=== PATIENT | female | born 1955 | race Native Hawaiian/Other Pacific Islander ===

== ENCOUNTER → 2017-07-14 | Outpatient (CLI) | payer OTHER ==
--- NOTE | 2017-07-15 08:38 | MM ---
Reason for exam: additional evaluation requested from prior study. Last mammogram was performed 3 months ago. History: Patient is postmenopausal, has history of breast cancer at age 48, and is nulliparous. Malignant lumpectomy of the right breast, 2003. Took estrogen for 2 years beginning at age 46. Took progesterone for 2 years beginning at age 46. Physical Findings: Nurse Summary: 1.5cm nodule in the right breast at 1 o'clock (nurse dw). MG Diagnostic Mammo RT w CAD CC and MLO view(s) were taken of the right breast. Prior study comparison: April 01, 2017, mammogram. There are scattered fibroglandular densities. Finding: There is an intermediate concern, suspicious 20 mm high density, spiculated oval mass located 6 cm from the nipple in the 12 o'clock upper quadrant, middle position of the right breast. Surgical clips in the right upper outer quadrant. New finding since April 01, 2017. These results were verbally communicated with the patient and result sheet given to the patient on 07/14/17. ASSESSMENT: Suspicious, BI-RAD 4 RECOMMENDATION: Surgical consultation and ultrasound core biopsy of the right breast. Called Dr. Martini with mammographic findings and has scheduled an appointment for the patient for 07/19/17 at 9:[address] Azul. PRELIMINARY REPORT CALLED AND FAXED TO DR. AZUL ON 07/15/17.
--- NOTE | 2017-07-15 08:39 | USB ---
Reason for exam: additional evaluation requested from prior study. History: Patient is postmenopausal, has history of breast cancer at age 48, and is nulliparous. Malignant lumpectomy of the right breast, 2003. Took estrogen for 2 years beginning at age 46. Took progesterone for 2 years beginning at age 46. US Breast RT Right breast ultrasound includes all four quadrants, the retroareolar region and axilla. Finding demonstrates a 3.1 x 1.5 x 2.3cm irregular, spiculated, solid, hypoechoic, vascular lesion at 6 o'clock. These results were verbally communicated with the patient and result sheet given to the patient on 07/14/17. ASSESSMENT: Suspicious, BI-RAD 4 RECOMMENDATION: Surgical consultation and ultrasound core biopsy of the right breast. Called Dr. Martini with mammographic findings and has scheduled an appointment for the patient for 07/19/17 at 9:[address] Azul. PRELIMINARY REPORT CALLED AND FAXED TO DR. AZUL ON 07/15/17.
== END | disposition home or self-care (01) ==
LOC: RADMAMWWP 13:46
PROVIDERS: ATTEND Internal Medicine
DX: N63.10 Unspecified lump in the right breast, unspecified quadrant (principal)
CPT/HCPCS: 77065

== ENCOUNTER → 2017-07-26 | Day surgery (SDC) | payer OTHER ==
--- NOTE | 2017-07-26 14:20 | USB ---
EXAMINATION TYPE: US biopsy breast VAD RT, Postbiopsy diagnostic mammo RT wo CAD DATE OF EXAM: 07/26/2017 CLINICAL HISTORY: 62-year-old female R92.8 ABN MAMMO. Patient with prior history of right breast canc er status post lumpectomy. TECHNIQUE: Ultrasound guided core biopsy of the right breast. COMPARISON: 07/14/2017, 04/01/2017, and 03/12/2016 FINDINGS: The procedure of ultrasound guided core biopsy was explained to the patient. Benefits, alt ernatives, and risks were discussed. An informed consent was then obtained. The patient was placed in supine positioning for imaging and for the procedure. The overlying skin w as prepped and draped in usual sterile fashion. Lidocaine buffered with bicarbonate was used as anes thetic into the skin and subcutaneous tissue up to area of concern in the 6:00 right breast. Under ultrasound guidance, a 13-gauge vacuum-assisted mammotome Elite biopsy gun device was used to o btain 8 core samples. Following this, a coil clip was left in lesion. A ribbon clip initially faile d to deploy. The patient tolerated the procedure well without any immediate complication. The patient was kept in the radiology department for short stay after the procedure and then discharged home in stable condi tion. Postbiopsy mammogram shows coil clip at the mammographic 6:00 mass. IMPRESSION: Successful, uncomplicated ultrasound guided core biopsy of suspicious 6:00 mass in the right breast. Patient with history of prior right breast cancer. Full pathology results to follow. If benign result s, excision will be recommended.
[2017-07-26 15:40] VITALS: BP 164/83; PULSE 70; RESP 16; TEMP 98.5; BMI 35.7
== END | disposition home or self-care (01) ==
LOC: RADUSWWP 11:11
PROVIDERS: ATTEND Surgery
DX: C50.911 Malignant neoplasm of unspecified site of right female breast (principal); Z85.3 Personal history of malignant neoplasm of breast; Z88.2 Allergy status to sulfonamides
CPT/HCPCS: 88305; 77065; 19083; A4648; J2001

== ENCOUNTER → 2021-10-29 | Outpatient (CLI) | payer MEDICARE, OTHER ==
--- NOTE | 2021-10-29 14:42 | NM ---
EXAMINATION TYPE: NM bone scan whole body DATE OF EXAM: 10/29/2021 COMPARISON: NONE HISTORY: Breast cancer Delayed whole-body scanning was performed following the injection of 23.4 mCi Tc 99m MDP. Images acq uired 3 hours post injection. FINDINGS: Abnormal uptake involving the maxilla likely related to periodontal disease. Abnormal uptake involving the feet, ankles, knees, and shoulders most arthritic changes. Abnormal uptake involving the right ankle could be in the basis of prior trauma. There is faint uptake throughout the thoracic and lumbar spine mild intensity most likely degenerativ e. There is a more focal intense area involving the sternum. This is nonspecific. IMPRESSION: 1. Intense area of abnormal uptake involving the sternum. Recommend correlation with the CT chest. 2. Additional areas of abnormal uptake are felt to be most typical of degenerative or post arthritic changes.
== END ==
LOC: RADNMMAIN 09:59
PROVIDERS: ATTEND Internal Medicine Hematology & Oncology
DX: R93.7 Abnormal findings on diagnostic imaging of other parts of musculoskeletal system (principal)
CPT/HCPCS: 78306; A9503

== ENCOUNTER → 2022-01-17 | Outpatient (CLI) | payer MEDICARE, OTHER ==
--- NOTE | 2022-01-20 10:01 | PE ---
EXAMINATION TYPE: PET CT fusion skull to thigh DATE OF EXAM: 01/17/2022 CLINICAL INDICATION:Female, 66 years old with history of C50.811; TECHNIQUE: Following the intravenous administration of 10.69 mCi of F-18 FDG, whole body images are performed from the skull base to the midthigh. Images are reviewed on the computer in the coronal, axial, and sagittal planes. Reconstructed rotating images are created on independent workstation and reviewed on the computer. A non-contrast CT is performed in conjunction with the PET scan. Glucose level 135 mg/dL COMPARISON: CT 01/30/2014, PET/CT None, FINDINGS: Mediastinal SUV mean is 2.1. Hepatic parenchyma SUV mean is 3.4. SKULL BASE AND NECK: No suspicious FDG activity. Physiologic uptake seen within the larynx. CHEST, MEDIASTINUM, AND HILAR REGION: No suspicious FDG activity. ABDOMEN AND PELVIS: No suspicious FDG activity. OSSEOUS STRUCTURES: No suspicious FDG activity. OTHER CT: Mild coronary artery atherosclerosis. The heart is mildly enlarged for size. Postsurgical c hanges with pneumobilia of the liver. Left hip fixation hardware with hardware in appropriate positio n. IMPRESSION: No suspicious FDG activity.
== END | disposition home or self-care (01) ==
LOC: RADPETMAIN 09:05
PROVIDERS: ATTEND Internal Medicine Hematology & Oncology
DX: C50.811 Malignant neoplasm of overlapping sites of right female breast (principal)
CPT/HCPCS: 78815; A9552

== ENCOUNTER → 2022-02-25 | Outpatient (CLI) | payer MEDICARE, OTHER | END | disposition home or self-care (01) | LOC: LABPAT 13:35 | PROVIDERS: ATTEND Orthopaedic Surgery | DX: Z01.812 Encounter for preprocedural laboratory examination (principal); M17.11 Unilateral primary osteoarthritis, right knee; Z22.322 Carrier or suspected carrier of Methicillin resistant Staphylococcus aureus | CPT/HCPCS: 87070 ==

== ENCOUNTER 2022-03-24 08:24 | Observation (INO) | payer MEDICARE, OTHER ==
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
[~2022-03-24 08:24] MED LIST: ACETAMINOPHEN TAB 500 MG TAB PO PRN; DEXAMETHASONE SOD PHOSPHATE 4 MG/ML 1 ML VIAL IV ONE; HYDROmorphone 0.5 MG/0.5 ML SYRINGE IVP PRN; MELOXICAM 7.5 MG TAB PO PRN; ONDANSETRON 4 MG/2 ML VIAL IVP ONE; TRANEXAMIC ACID IN NACL,ISO-OS 1,000 MG in SALINE 1 100ML.BAG IVPB PRN
[2022-03-24] MEDS: LACTATED RINGERS 1,000 ML IV SCH (08:40)
[2022-03-24] MEDS ORDERED: fentaNYL (PF) 50 MCG/1 ML VIAL IVP ONE (10:04)
[2022-03-24] MEDS ORDERED: MIDAZOLAM 2 MG/2 ML VIAL IVP ONE (10:04)
[2022-03-24] MEDS ORDERED: SODIUM CHLORIDE 0.9% (PF) 10 ML VIAL ONE (10:18)
[2022-03-24] MEDS ORDERED: PROPOFOL 10 MG/ML 20 ML VIAL IV ONE (10:18)
[2022-03-24] MEDS ORDERED: fentaNYL (PF) 50 MCG/ML 2 ML AMP ONE (10:18)
[2022-03-24] MEDS ORDERED: ROPIVACAINE 5 MG/ML 30 ML VIAL ONE (10:18)
[2022-03-24] MEDS ORDERED: MIDAZOLAM 2 MG/2 ML VIAL ONE (10:18)
[2022-03-24] MEDS ORDERED: TRANEXAMIC ACID IN NACL,ISO-OS 1,000 MG/100 ML BAG ONE (10:18)
[2022-03-24] MEDS ORDERED: ceFAZolin 1,000 MG in SODIUM CHLORIDE 0.9% 1,000 ML IRRIGATION ONE (10:55)
--- NOTE | 2022-03-24 11:01 | P.ANPRN ---
Procedure Note - Anesthesia - Nerve Block Performed Right Adductor Canal Infusion Time Out Performed: Yes (1003) Date of Procedure: 03/24/22 Procedure Start Time: 10:04 Procedure Stop Time: 10:11 Location of Patient: PreOp Indication: Acute Post-Operative Pain, Requested by Surgeon Specifically requested for management of pain by : Marcio Noyola Sedation Type: Sedate with meaningful contact maintained Preparation: Sterile Prep, Sterile Dressing Position: Supine Catheter Depth at Skin (cm): 8 Catheter: Indwelling Needle Types: Pajunk Needle Gauge: 18 Ultrasound used to visualize needle placement: Yes Ultrasound used to observe medication spread: Yes Injectate: 0.5% Ropivacaine (see comment for volume) (15cc + 5cc nacl pf) Blood Aspirated: No Pain Paresthesia on Injection Noted: No Resistance on Injection: Normal Image Stored and Saved: Yes Events: Uneventful and Well Tolerated
--- NOTE | 2022-03-24 11:02 | P.ANPRN ---
Procedure Note - Anesthesia - Nerve Block Performed Right iPack Single Time Out Performed: Yes (1003) Date of Procedure: 03/24/22 Procedure Start Time: 10:12 Procedure Stop Time: 10:15 Location of Patient: PreOp Indication: Acute Post-Operative Pain, Requested by Surgeon Specifically requested for management of pain by DrCatalina: Marcio Noyola Sedation Type: Sedate with meaningful contact maintained Preparation: Sterile Prep Position: Supine Catheter: None Needle Types: Pajunk Needle Gauge: 21 Ultrasound used to visualize needle placement: Yes Ultrasound used to observe medication spread: Yes Injectate: 0.5% Ropivacaine (see comment for volume) (15cc + 5cc nacl pf) Blood Aspirated: No Pain Paresthesia on Injection Noted: No Resistance on Injection: Normal Image Stored and Saved: Yes Events: Uneventful and Well Tolerated
[2022-03-24] MEDS ORDERED: LACTATED RINGERS 1,000 ML IV ONE (12:04)
[2022-03-24] MEDS ORDERED: HYDROcodone/APAP 5-325MG 1 EACH TAB PO PRN (12:08)
[2022-03-24] MEDS ORDERED: HYDROcodone/APAP 7.5-325MG 1 EACH TAB PO PRN (12:08)
[2022-03-24] MEDS ORDERED: MAGNESIUM HYDROXIDE 2,400 MG/10 ML CUP PO PRN (12:08)
[2022-03-24] MEDS ORDERED: NALOXONE 0.4 MG/ML 1 ML VIAL IV PRN (12:08)
[2022-03-24] MEDS ORDERED: HYDROmorphone 0.5 MG/0.5 ML SYRINGE IVP PRN ×2 (12:08)
--- NOTE | 2022-03-24 12:26 | P.OP ---
Date of Procedure: 03/24/22 Preoperative Diagnosis: Right knee severe medial and lateral compartment osteoarthrosis Postoperative Diagnosis: Same Procedure(s) Performed: Right total knee arthroplastycementedposterior stabilized Implants: Depuy Attune size 6 narrow cemented femoral component, size 5 cemented tibial component, 10 mm articular surface. This is a posterior stabilized implant. Anesthesia: regional, spinal Surgeon: Marcio Noyola Mend Worker #1: Juventino Stanley Estimated Blood Loss (ml): 50 Pathology: other (Bone fragments) Condition: stable Disposition: PACU Indications for Procedure: The patient is a 66-year-old female who presents with progressive right knee pain secondary to osteoarthrosis despite conservative measures. A discussion of the risks and benefits of operative intervention versus continued conservative measures was made with the patient. She opted to proceed with surgery. Operative risks to include infection, neurovascular injury, fracture, development of blood clots, possible component loosening/failure and need for subsequent procedures was discussed. Informed consent was obtained. Operative Findings: As below Description of Procedure: The patient was brought to the operating room, and after induction of spinal anesthesia the right lower extremity was prepped and draped in a normal fashion. The tourniquet was inflated to 270 mm marker. A longitudinal incision extending 12 cm was made in the midline extending to the medial aspect of the tibial tubercle.. The skin and subcutaneous tissues were divided sharply. Electrocautery was used for hemostasis. A medial arthrotomy was performed. The medial soft tissues to include the superficial and deep portions of the medial collateral ligament were elevated subperiosteally. A portion of the retropatellar fat pad was excised sharply. The anterior cruciate ligament was sacrificed. Blunt retractors were placed. A starting hole was made in the distal femur 1 cm anterior to the posterior cruciate ligament origin. An intramedullary femoral guide was then inserted planning on 5 valgus distal cut with 9 mm distal resection. The cutting block was pinned in place. The distal cut was then made. The posterior referencing sizing guide was utilized. I felt size 6 narrow was most appropriate. 3 of external rotation was built into the system and verified off the trans-epicondylar axis and the posterior condyles. The cutting block was pinned in place. The anterior, posterior, and chamfer cuts then made. Bone fragments were removed. The intercondylar guide was placed and the notch cut was made with a sagittal saw. The bone block was removed in one fragment. The trial component was then placed. There is good anterior to posterior and medial to lateral fit. The distal peg holes were drilled. The trial component was removed. Attention was then paid towards preparing the proximal tibia. An extra medullary guide was utilized in line with the tibial shaft and second metatarsal distally. I planned on 2 mm resection from the medial compartment. The cutting block was pinned in place. The proximal tibial cut was then made. The bone was removed in one fragment. The remnants of the medial and lateral menisci were excised at the capsular junction with electrocautery. The tibia sized most appropriately at size 5. The trial femoral and tibial components were placed along with a and mm articular surface. I was able to obtain full flexion and extension with internal and external rotation. After several flexion and extension cycles, the tibial rotation was marked with electrocautery line with the medial one third of the tibial tubercle. The trial components were then removed. The tibia was prepared in the appropriate rotation with appropriate drill and keel punch. The posterior osteophytes were removed with a curved osteotome. The flexion and extension gaps were checked and felt to be symmetric at 10 mm. A trial components were then removed. The bony surfaces were prepared with pulsatile lavage and dried. The tibial component was then cemented place was fully seated. Excess cement was removed. The femoral component cemented place and was fully seated. Excess cement was removed. The trial 10 mm articular surface was placed and the knee was put in full extension. . After the cement had sufficiently hardened, the knee was again taken through a range of motion. Again I was able to obtain full flexion and extension with varus and valgus stress. The trial 10 mm articular surface was removed and the final one inserted. This was fully seated. Care was taken to avoid any soft tissue interposition. Pulsatile lavage was again utilized. The medial parapatellar arthrotomy was closed with #2 Ethibond suture. The tourniquet was deflated with approximately 60 minutes total tourniquet time. Final hemostasis was obtained with the cautery. There was minimal bleeding therefore a deep drain was not placed. The subcutaneous tissues were reapproximated with interrupted 2-0 Vicryl sutures. The skin was reapproximated with 3-0 subcuticular strata fix suture. Skin tape and adhesive was applied. A sterile dressing was applied. The patient was awoken from sedation and transferred to recovery room in good condition. Blood loss was estimated at 50 mL. No complications were incurred. Sponge and needle counts were correct at the end of the case. Juventino CAMPBELL assisted during the major components of this case to include exposure, bone resection, implantation, and closure.
[2022-03-24] MEDS ORDERED: ROPIVACAINE 1,100 MG, SODIUM CHLORIDE 0.9% 500 ML 330 ML, EMPTY PAIN BALL 1 EACH MISCELLANE PRN ×2 (12:42)
--- NOTE | 2022-03-24 13:00 | XR ---
EXAMINATION TYPE: XR knee limited RT DATE OF EXAM: 03/24/2022 COMPARISON: NONE TECHNIQUE: Two views submitted HISTORY: Post op FINDINGS: There is a prosthetic knee in near anatomic alignment. There is soft tissue edema and emphysema. IMPRESSION: 1. Postoperative change. Appears in near-anatomic alignment
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
[2022-03-24] MEDS: carvediloL 12.5 MG TAB PO SCH (16:28)
[2022-03-24] MEDS: SENNOSIDES-DOCUSATE SODIUM 1 EACH TAB PO SCH (21:56)
[2022-03-25] MEDS: LACTATED RINGERS 1,000 ML IV SCH (05:47)
[2022-03-25] MEDS: LEVOTHYROXINE 112 MCG TAB PO SCH (05:47)
[2022-03-25] MEDS ORDERED: carvediloL 12.5 MG TAB PO SCH (07:30)
[2022-03-25] MEDS: RIVAROXABAN 10 MG TAB PO SCH (08:24)
[2022-03-25] MEDS: LETROZOLE 2.5 MG TAB PO SCH (08:25)
[2022-03-25] MEDS: PALBOCICLIB 75 MG PO SCH (08:25)
[2022-03-25] MEDS: carvediloL 12.5 MG TAB PO SCH (08:25)
[2022-03-25] MEDS: oxyCODONE-APAP 5-325MG 1 EACH TAB PO PRN ×3 (08:25→20:29)
[2022-03-25] MEDS: PANTOPRAZOLE 40 MG TABLET PO SCH (08:25)
[2022-03-25 09:11] LABS: Magnesium 1.8 mg/dL (1.5-2.4)
[2022-03-25 09:27] LABS: Anion Gap 11.2 mmol/L (10.00-18.00); BUN/Creat Ratio 18.3 Ratio (12.00-20.00); Blood Urea Nitrogen 18.3 mg/dL (9.0-27.0); Carbon Dioxide 21.8 mmol/L (20.0-27.5); Non-African American GFR(CKD) 57.8 (60.0-200.0); Potassium 4.9 mmol/L (3.5-5.5)
--- NOTE | 2022-03-25 10:42 | P.PN ---
Subjective Progress Note Date: 03/25/22 Principal diagnosis: Right knee osteoarthritis Patient was seen at bedside this morning and had just finished working with physical therapy. Patient was sitting up in chair with legs elevated. Patient says she was able to walk around the room but was unable to do stairs this mo rning with therapy. Patient is wondering if she can go to swing bed for short period of time before going home. Patient says she was going to have help at home, however, her family member is sick and will not be able to help her now. Patient says she has urinated since surgery yesterday. Patient says she has not had bowel movement yet, however, patient says she has been passing gas. Patient denies chest pain, fever, shortness breath, nausea, vomiting, change in vision, loss of bowel/bladder control. Objective - Vital Signs Vital signs: Vital Signs Temp 98.1 F 03/25/22 07:13 Pulse 67 03/25/22 07:13 Resp 17 03/25/22 07:13 BP 162/80 03/25/22 07:13 Pulse Ox 99 03/25/22 07:13 FiO2 Intake & Output 03/24/22 03/25/22 03/25/22 18:59 06:59 18:59 Intake Total 1352 Output Total 50 Balance 1302 Weight 111 kg Intake: IV 1352 Output: Estimated Blood Loss 50 Other: Voiding Method Toilet Bedside Commode Bedside Commode # Voids 1 3 # Bowel Movements 1 - Exam Right knee: Incision is clean, dry, and intact. The exofin fusion tape is in good condition. There is minimal soft tissue swelling and ecchymosis surrounding the medial and lateral aspects of the incision. Calf is soft, no tenderness with palpation. Plantar flexion, dorsiflexion, EHL, FHL are intact. Sensory exam to light touch throughout the extremity is intact, dorsal pedis pulses 2+. - Labs CBC & Chem 7: 03/25/22 06:27 Labs: Abnormal Lab Results - Last 24 Hours (Table) 03/25/22 Range/Units 06:27 Est GFR (CKD-EPI)NonAf 57.8 L (60.0-200.0) Glucose 158 H (70-110) mg/dL Assessment and Plan Assessment: 1. Right knee osteoarthritis Postoperative day 1 status post right total knee arthroplasty Plan: 1. Right knee osteoarthritis - right total knee arthroplasty performed yesterday, 03/25/2022. Patient stable at bedside this morning. Patient was able to work with therapy this morning, was unable to do stairs. Plan for discharge to rehab tomorrow versus Wednesday. 2. Appreciate medical management 3. Pain management - Percocet 4. DVT prophylaxis - Xarelto 5. GI prophylaxis - Protonix; milk of mag; senna 6. PT/OT - weightbearing as tolerated with walker 7. Encourage incentive spirometer use 8. Discharge planning - Plan for discharge to rehab tomorrow versus Wednesday. Time with Patient: Less than 30
[2022-03-25] MEDS ORDERED: hydrOXYzine pamoate 25 MG CAP PO PRN (12:21)
[2022-03-25 13:23] LABS: Basophils % (A) 0 %; Eosinophils % (A) 0 %; HCT 35.5 % (34.0-46.0); HGB 12.2 gm/dL (11.4-16.0); Lymphocytes # (A) 0.6 k/uL (1.0-4.8); Lymphocytes % (A) 6 %; MCH 34.1 pg (25.0-35.0); MCHC 34.3 g/dL (31.0-37.0); MCV 99.5 fL (80.0-100.0); Monocytes # (A) 0.6 k/uL (0-1.0); Monocytes % (A) 6 %; Neutrophils % (A) 85 %; Platelet Count 130 k/uL (150-450); RBC 3.57 m/uL (3.80-5.40); RDW 12.7 % (11.5-15.5); WBC 9.4 k/uL (3.8-10.6)
--- NOTE | 2022-03-25 15:08 | P.PN ---
Progress Note - Text The patient is status post right adductor canal catheter placement. The catheter was placed for postoperative pain control, status post total right knee arthroplasty. Ropivacaine 0.2% is infusing at 8 mLs per hour. The patient has no complaints of right lower extremity numbness or weakness. Patient's VAS score is-1 -10 at rest, 4-5-10 with movement. Assessment: Patient's adductor canal catheter is in place and working appropriately. Plan: continue infusion and adjust it as needed.
--- NOTE | 2022-03-25 18:51 | P.PN ---
Subjective Progress Note Date: 03/25/22 Hospital course: Patient is a very pleasant 66-year-old female with a past medical history of hypertension, thyroid cancer status post thyroidectomy, right-sided breast cancer status post lumpectomy with lymph node removal, and osteoarthrosis. She is currently admitted under orthopedic surgical team status post elective right total knee arthroplasty secondary to severe medial and lateral compartment osteoarthrosis. Surgical procedure completed by Dr. Noyola. We have been consulted for medical management throughout patient's hospitalization. Physical exam: Patient seen and fully evaluated at bedside this morning. Patient sitting up in chair just completed working with physical therapy. Patient reports pain is currently controlled with current pain medication regimen now that she has been switched to Percocet instead of [place]. Patient's been urinating without any di fficulties and tolerating oral intake without any episodes of nausea or vomiting. Patient denies having any other complaints including headache, lightheadedness, dizziness, chest pain, palpitations, shortness of breath, or experiencing any numbness/tingling/weakness. Vital signs reviewed and stable. Morning labs unremarkable. Vital signs stable. Patient is medically stable for discharge once cleared by primary admitting orthopedic surgery team. General: Nontoxic, no distress and appears stated age. Derm: Skin warm and dry, normal coloration for ethnicity. Head: Atraumatic, normocephalic and symmetric. Eyes: EOMs intact, no lid lag, and anicteric sclera Mouth: no lip lesions, mucus membranes moist Cardiovascular: regular rate and rhythm with normal S1S2, no murmur, positive posterior tibial pulses bilaterally, and cap refill < 2 seconds. Lungs: Respirations even, regular, and unlabored on room air. Lungs CTA bilaterally, no rhonchi, no rales, no wheezing, and no accessory muscle usage. Abdominal: soft, nontender to palpation, no guarding, no appreciable organomegaly Ext: Movement and sensation intact. No gross muscle atrophy, no edema, and no contractures. Right lower extremity with postoperative dressing and ice packs to right knee. Neuro: Speech clear, face symmetrical and CN II-XII grossly intact with no noted focal neuro deficits Psych: Alert and oriented to person, place, time, and situation. Appropriate and pleasant affect. Assessment and Plan of Care: Status post right total knee arthroplasty -Management per primary admitting orthopedic surgery team including DVT prophylaxis, pain management, wound/drain care, weightbearing, and PT/OT. -Patient currently with JERROD العراقي and SCDs for DVT prophylaxis. Hypertension -Blood pressure is currently elevated 169/85 with heart rate of 58. Plan to resume daily antihypertensive medication regimen with carvedilol. -Monitor vital signs. History of thyroid cancer status post thyroidectomy -Continue daily medication regimen with level thyroxine. Stage IV breast carcinoma status post lumpectomy followed by right-sided partial mastectomy -Continue daily medication regimen with Ibrance and Letrozole. -Continue to follow up outpatient with hematology/oncology for continued long- term monitoring and management. Thank you for allowing us to participate in the care of this pleasant patient. Do not hesitate to contact us with questions. Someone can be reached from the [facility] hospitalist group all hours of the day at [phone] or via [email or web address]. Attending Note Gonzales Vazquez NP rendered care for this patient independently, reviewed the findings and plan as documented in the note above. I did not physically speak with our examined the patient on this date. Objective - Vital Signs Vital signs: Vital Signs Temp 98.1 F 03/25/22 07:13 Pulse 67 03/25/22 07:13 Resp 17 03/25/22 07:13 BP 162/80 03/25/22 07:13 Pulse Ox 99 03/25/22 07:13 FiO2 Intake & Output 03/24/22 03/25/22 03/25/22 18:59 06:59 18:59 Intake Total 1352 Output Total 50 Balance 1302 Weight 111 kg Intake: IV 1352 Output: Estimated Blood Loss 50 Other: Voiding Method Toilet Bedside Commode Bedside Commode # Voids 1 3 # Bowel Movements 1 - Labs CBC & Chem 7: 03/25/22 12:48 03/25/22 06:27
[2022-03-25] MEDS: SENNOSIDES-DOCUSATE SODIUM 1 EACH TAB PO SCH (20:29)
[2022-03-26] MEDS: oxyCODONE-APAP 5-325MG 1 EACH TAB PO PRN ×3 (02:31→12:56)
[2022-03-26] MEDS: LACTATED RINGERS 1,000 ML IV SCH (06:10)
[2022-03-26] MEDS: LEVOTHYROXINE 112 MCG TAB PO SCH (06:13)
[2022-03-26] MEDS: RIVAROXABAN 10 MG TAB PO SCH (08:20)
[2022-03-26] MEDS: LETROZOLE 2.5 MG TAB PO SCH (08:20)
[2022-03-26] MEDS: PALBOCICLIB 75 MG PO SCH (08:20)
[2022-03-26] MEDS: carvediloL 12.5 MG TAB PO SCH (08:20)
[2022-03-26] MEDS: PANTOPRAZOLE 40 MG TABLET PO SCH (08:20)
--- NOTE | 2022-03-26 10:43 | P.PN ---
Subjective Progress Note Date: 03/26/22 Principal diagnosis: status post right total knee arthroplasty Patient is evaluated at bedside, she is resting comfortably in her hospital chair. She has been up working with physical therapy, she does have some generalized soreness in the knee. She denies any headaches, lightheadedness, chest pain or shortness of breath. Objective - Vital Signs Vital signs: Vital Signs Temp 98.1 F 03/26/22 08:00 Pulse 67 03/26/22 08:20 Resp 16 03/26/22 08:20 BP 114/70 03/26/22 08:00 Pulse Ox 98 03/26/22 08:00 FiO2 Intake & Output 03/25/22 03/26/22 03/26/22 18:59 06:59 18:59 Other: Voiding Method Bedside Commode Bedside Commode Bedside Commode # Voids 3 4 - Exam Right lower extremity: Incision is clean, dry, and intact. The exofin fusion tape is in good condition. There is minimal soft tissue swelling and ecchymosis surrounding the medial and lateral aspects of the incision. Calf is soft, no tenderness with palpation. Plantar flexion, dorsiflexion, EHL, FHL are intact. Sensory exam to light touch throughout the extremity is intact, dorsal pedis pulses 2+. - Labs CBC & Chem 7: 03/25/22 12:48 03/25/22 06:27 Labs: Abnormal Lab Results - Last 24 Hours (Table) 03/25/22 Range/Units 12:48 RBC 3.57 L (3.80-5.40) m/uL Plt Count 130 L (150-450) k/uL Neutrophils # 8.0 H (1.3-7.7) k/uL Lymphocytes # 0.6 L (1.0-4.8) k/uL Assessment and Plan Assessment: Postoperative day #2 status post right total knee arthroplasty Plan: Pain control, plan for discharge on oral medication DVT prophylaxis, Xarelto 10 mg 12 days Wound care instructions discussed, this to include icing and elevating along with showering Medical recommendations Daily therapy after discharge to swing bed Discharge planning: Plan for discharge today Time with Patient: Less than 30
--- NOTE | 2022-03-26 10:53 | P.DS ---
Providers Date of admission: 03/25/22 07:33 Expected date of discharge: 03/26/22 Attending physician: Marcio Noyola Consults: 03/24/22 12:10 Consult Physician Routine Consulting Provider: Radha Alvarado Consult Reason/Comments: Medical Management s/p right total knee arthroplasty Do you want consulting provider notified?: Yes Primary care physician: [facility] Hospital Course: Date of admission: 03/24/2022 Date of discharge: 03/26/2022 Admission diagnosis: Status post right total knee arthroplasty Discharge diagnosis: Same Attending physician: Dr. Noyola Surgical procedures: Right total knee arthroplasty Brief history: Patient is a 66-year-old female with a history of progressive primary right knee osteoarthritis. At this point patient has failed conservativ e treatment measures and has opted to proceed with a elective right total knee arthroplasty. Hospital course: Details of patient's surgery can be found in operative report. Patient tolerated the procedure well and was subsequently transported to orthopedic floor. Patient's orthopeidc and medical care was provided daily. Patient had daily laboratory tests performed for evaluation of overall blood counts. Patient had daily physical therapy to include strengthening range of motion as well as education with walker ambulation. Patient was treated with Xarelto for their postoperative DVT prophylaxis during their inpatient stay. Patient was noted to have a relatively uneventful postoperative course. Patient reported satisfactory pain control with oral pain medications by postoperative day 2. Patient showed satisfactory progress with physical therapy. Patient moved steadily through the program and had no difficulty meeting the goals by postoperative day 2. Given patient's otherwise satisfactory course and having met physical therapy goals, plan is to discharge patient subacute rehab on postoperative day 2. Discharge condition/disposition: Patient will be discharged subacute rehab in stable condition. Discharge medications: Instructions are given on resumption of patient's normal daily medications per primary care recommendation, in addition patient will be prescribed Percocet 5 mg/325 mg, senna S, Xarelto 10 mg. Discharge instructions: 1. Wound care and infection precautions, keep incision dry and covered while showering, no lotions, creams, moisturizers. No soaking, tubs, pools, hottubs. Do not scrub over the incision. 2. Weight-bear as tolerated with walker / cane until follow-up. 3. Ice and elevate when necessary. Do not exceed 20 minutes per hour with ice pack. 4. Utilize compression sleeve until seen at first follow up appointment. 5. Visiting nursing care. 6. Home physical therapy including home CPM. 7. Pain meds and anticoagulants per prescription. 8. Pain medication has potential to cause constipation. Increase oral fluid and fiber intake. Contact primary care provider if you have not had a bowel movement within 48 hours after discharge 9. No anti-inflammatory medication until discussed at first post operative visit, this including Motrin, Aleve, Mobic, Diclofenac. 10. Follow up in office at 2 weeks postop with Hemal Carranza PA-C/Juventino Land 11. Follow up with your primary care doctor 7-10 days after discharge. 12. Contact [facility] with any questions, . Procedures: Right total knee arthroplasty Patient Condition at Discharge: Good Plan - Discharge Summary Discharge Rx Participant: No New Discharge Prescriptions: New Rivaroxaban [Xarelto] 10 mg PO DAILY #12 tab oxyCODONE HCL/ACETAMINOPHEN [Percocet 5-325 mg] 1 tab PO Q6HR PRN 7 Days #28 tab PRN Reason: Pain Sennosides/Docusate Sodium [Senna-S 8.6-50 mg Tablet] 1 each PO DAILY PRN #30 tablet PRN Reason: Constipation No Action Esomeprazole Magnesium [NexIUM] 40 mg PO DAILY carvediloL [Coreg*] 12.5 mg PO DAILY Palbociclib [Ibrance] 1 tab PO DAILY Levothyroxine Sodium [Euthyrox] 112 mcg PO DAILY Letrozole 1 tab PO DAILY Discharge Medication List Esomeprazole Magnesium [NexIUM] 40 mg PO DAILY 07/20/17 [History] carvediloL [Coreg*] 12.5 mg PO DAILY 07/20/17 [History] Letrozole 1 tab PO DAILY 03/19/22 [History] Levothyroxine Sodium [Euthyrox] 112 mcg PO DAILY 03/19/22 [History] Palbociclib [Ibrance] 1 tab PO DAILY 03/19/22 [History] Rivaroxaban [Xarelto] 10 mg PO DAILY #12 tab 03/26/22 [Rx] Sennosides/Docusate Sodium [Senna-S 8.6-50 mg Tablet] 1 each PO DAILY PRN #30 tablet 03/26/22 [Rx] oxyCODONE HCL/ACETAMINOPHEN [Percocet 5-325 mg] 1 tab PO Q6HR PRN 7 Days #28 tab 03/26/22 [Rx] Follow up Appointment(s)/Referral(s): Juventino Stanley PAC [PHYSICIAN [employer] ADMINISTRATOR] - 04/09/22 9:40 am Kurt Suarez NPC [Primary Care Provider] - 1 Week Patient Instructions/Handouts: Knee Replacement (DC) Activity/Diet/Wound Care/Special Instructions: [facility] for rehab Orthopedic Discharge Instructions: 1. Wound care and infection precautions, keep incision dry and covered while showering, no lotions, creams, moisturizers. No soaking, pools, hot tubs. Do not scrub over incision. 2. Weight-bear as tolerated with walker / cane until follow-up. 3. Ice and elevate when necessary. Do not exceed 20 minutes per hour with ice pack. 4. Utilize compression sleeve until seen at first follow up appointment. 5. Pain meds and anticoagulants per prescription. 6. Pain medication has potential to cause constipation. Increase oral fluid and fiber intake. Contact primary care provider if you have not had a bowel movement within 48 hours after discharge. 7. No anti-inflammatory medication until discussed at first post operative visit, this including Motrin, Aleve, Mobic, Diclofenac 8. Follow up in office at 2 weeks postop with Hemal Carranza PA-C / Juventino Stanley PA-C 9. Follow up with your primary care doctor 7-10 days after discharge. 10. Contact [facility] with any questions, . Keep incision clean, dry, intact. While showering, cover fusion tape with Saran wrap. Keep fusion tape on until follow-up appointment in office in 2 weeks. Discharge Disposition: TRANSFER TO SNF/ECF
[2022-03-26 14:01] VITALS: BP 136/71; PULSE 56; RESP 18; TEMP 98.6
--- NOTE | 2022-03-26 14:49 | P.PN ---
Subjective Progress Note Date: 03/26/22 Hospital course: Patient is a very pleasant 66-year-old female with a past medical history of hypertension, thyroid cancer status post thyroidectomy, right-sided breast cancer status post lumpectomy with lymph node removal, and osteoarthrosis. She is currently admitted under orthopedic surgical team status post elective right total knee arthroplasty secondary to severe medial and lateral compartment osteoarthrosis. Surgical procedure completed by Dr. Noyola. We have been consulted for medical management throughout patient's hospitalization. Physical exam: Patient seen and fully evaluated at bedside this morning. Patient sitting up in chair just completed working with physical therapy. She reports pain has been controlled, but does have increased episodes of pain after physical therapy. Plan is for patient to be discharged to rehab today. Medically, patient is sta ble for discharge. She denies having any needs, complaints, or concerns at this time. Vital signs stable. Patient is medically cleared for discharge to rehab. General: Nontoxic, no distress and appears stated age. Derm: Skin warm and dry, normal coloration for ethnicity. Head: Atraumatic, normocephalic and symmetric. Eyes: EOMs intact, no lid lag, and anicteric sclera Mouth: no lip lesions, mucus membranes moist Cardiovascular: regular rate and rhythm with normal S1S2, no murmur, positive posterior tibial pulses bilaterally, and cap refill < 2 seconds. Lungs: Respirations even, regular, and unlabored on room air. Lungs CTA bilaterally, no rhonchi, no rales, no wheezing, and no accessory muscle usage. Abdominal: soft, nontender to palpation, no guarding, no appreciable organomeg titus Ext: Movement and sensation intact. No gross muscle atrophy, no edema, and no contractures. Right lower extremity with postoperative dressing and ice packs to right knee. Neuro: Speech clear, face symmetrical and CN II-XII grossly intact with no noted focal neuro deficits Psych: Alert and oriented to person, place, time, and situation. Appropriate and pleasant affect. Assessment and Plan of Care: Status post right total knee arthroplasty -Management per primary admitting orthopedic surgery team including DVT prophylaxis, pain management, wound/drain care, weightbearing, and PT/OT. -Patient currently with JERROD malcom and SCDs for DVT prophylaxis. Hypertension -Blood pressure is currently elevated 169/85 with heart rate of 58. Plan to resume daily antihypertensive medication regimen with carvedilol. -Monitor vital signs. History of thyroid cancer status post thyroidectomy -Continue daily medication regimen with level thyroxine. Stage IV breast carcinoma status post lumpectomy followed by right-sided partial mastectomy -Continue daily medication regimen with Ibrance and Letrozole. -Continue to follow up outpatient with hematology/oncology for continued long- term monitoring and management. Thank you for allowing us to participate in the care of this pleasant patient. Do not hesitate to contact us with questions. Someone can be reached from the [facility] hospitalist group all hours of the day at [phone] or via [employer]. Attending Note Gonzales Vazquez NP rendered care for this patient independently, reviewed the findings and plan as documented in the note above. I did not physically speak with our examined the patient on this date. Objective - Vital Signs Vital signs: Vital Signs Temp 98.1 F 03/26/22 08:00 Pulse 67 03/26/22 08:20 Resp 16 03/26/22 08:20 BP 114/70 03/26/22 08:00 Pulse Ox 98 03/26/22 08:00 FiO2 Intake & Output 03/25/22 03/26/22 03/26/22 18:59 06:59 18:59 Other: Voiding Method Bedside Commode Bedside Commode Bedside Commode # Voids 3 4 - Labs CBC & Chem 7: 03/25/22 12:48 03/25/22 06:27 Labs: Abnormal Lab Results - Last 24 Hours (Table) 03/25/22 03/25/22 Range/Units 06:27 12:48 RBC 3.57 L (3.80-5.40) m/uL Plt Count 130 L (150-450) k/uL Neutrophils # 8.0 H (1.3-7.7) k/uL Lymphocytes # 0.6 L (1.0-4.8) k/uL Est GFR (CKD-EPI)NonAf 57.8 L (60.0-200.0) Glucose 158 H (70-110) mg/dL
== END 2022-03-26 14:21 ==
LOC: OR 08:24 → 4SSUR 12:24 → OR 03-25 07:33 → 4SSUR 03-25 07:33
PROVIDERS: ADMIT Orthopaedic Surgery; ATTEND Orthopaedic Surgery
DX: M17.11 Unilateral primary osteoarthritis, right knee (principal); I10 Essential (primary) hypertension; Z85.3 Personal history of malignant neoplasm of breast; Z85.850 Personal history of malignant neoplasm of thyroid; Z98.890 Other specified postprocedural states; Z90.49 Acquired absence of other specified parts of digestive tract; Z90.710 Acquired absence of both cervix and uterus; E89.0 Postprocedural hypothyroidism; Z84.89 Family history of other specified conditions; Z79.890 Hormone replacement therapy; Z79.899 Other long term (current) drug therapy; Z88.2 Allergy status to sulfonamides; Z79.811 Long term (current) use of aromatase inhibitors; Z91.018 Allergy to other foods
CPT/HCPCS: 97116; 97161; 97530; 97535 ×2; 97166; 64999; 64448; 76942; 88305; 80048; 83735; 85025; 88311; 73560; 27447; G0378 ×2; C1713 ×2; C1776; C1751; J2250; J1100; J0690 ×3; J2405; J3010 ×2; J2795; J2704; J1170

== ENCOUNTER → 2022-07-25 | Outpatient (CLI) | payer MEDICARE, OTHER ==
--- NOTE | 2022-07-26 06:58 | PE ---
EXAMINATION TYPE: PET CT fusion skull to thigh DATE OF EXAM: 07/25/2022 COMPARISON: Most recent PET CT January 17, 2022 HISTORY: Breast cancer progress study. Radiation treatment in 2020. TECHNIQUE: Following the intravenous administration of 11.42 mCi of F-18 FDG, whole body images are performed from the skull base to the midthigh. Images are reviewed on the computer in the coronal, a xial, and sagittal planes. Reconstructed rotating images are created on independent workstation and reviewed on the computer. A localization and attenuation correction CT is performed in conjunction with the PET scan. Blood glucose level equals 114 SCAN: Subsequent Scan FINDINGS: SKULL BASE AND NECK: No new areas of abnormal hypermetabolic uptake. CHEST, MEDIASTINUM, AND HILAR REGION: No new areas of abnormal hypermetabolic uptake. Asymmetric righ t breast skin thickening with surgical change inferiorly and laterally is redemonstrated. ABDOMEN AND PELVIS: Normal excretion redemonstrated. No new areas of abnormal hypermetabolic uptake. OSSEOUS STRUCTURES: No new areas of abnormal hypermetabolic uptake. OTHER CT: Mild coronary artery calcification is redemonstrated. Persistent metallic stent in the live r with pneumobilia. Cholecystectomy clips redemonstrated. Uterus surgically absent. Surgical changes to the left femur is partially imaged. Scoliotic curvature is redemonstrated. IMPRESSION: No new areas of abnormal hypermetabolic uptake to suggest active neoplastic recurrence. N o significant change from most recent PET/CT.
== END | disposition home or self-care (01) ==
LOC: RADPETMAIN 12:09
PROVIDERS: ATTEND Internal Medicine Hematology & Oncology
DX: C50.811 Malignant neoplasm of overlapping sites of right female breast (principal)
CPT/HCPCS: 78815; A9552

== ENCOUNTER → 2022-09-11 | Outpatient (CLI) | payer MEDICARE, OTHER ==
[2022-09-12 01:30] LABS: Basophils % (A) 1 %; Eosinophils # (A) 0.1 k/uL (0-0.7); Eosinophils % (A) 2 %; HCT 34.4 % (34.0-46.0); HGB 11.3 gm/dL (11.4-16.0); Hypochromasia Slight; Lymphocytes # (A) 0.2 k/uL (1.0-4.8); Lymphocytes % (A) 2 %; MCH 33.8 pg (25.0-35.0); MCHC 32.9 g/dL (31.0-37.0); MCV 102.7 fL (80.0-100.0); Macrocytosis Slight; Mean Platelet Volume 8.8; Monocytes # (A) 0.2 k/uL (0-1.0); Monocytes % (A) 2 %; Neutrophils # (A) 6.4 k/uL (1.3-7.7); Neutrophils % (A) 93 %; Platelet Count 203 k/uL (150-450); RBC 3.34 m/uL (3.80-5.40); WBC 6.9 k/uL (3.8-10.6)
[2022-09-12 03:17] LABS: Erythrocyte Sedimentation Rate 71 mm/hr (0-20)
== END | disposition home or self-care (01) ==
LOC: LABWHC1 14:17
PROVIDERS: ATTEND Orthopaedic Surgery
DX: M25.50 Pain in unspecified joint (principal)
CPT/HCPCS: 36415; 85025; 85652; 86140

== ENCOUNTER 2022-09-14 15:18 | Inpatient (IN) | payer MEDICARE, OTHER ==
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
[2022-09-14] MEDS ORDERED: MORPHINE SULFATE 4 MG/ML SYRINGE IV PRN (17:14)
[2022-09-14] MEDS ORDERED: ACETAMINOPHEN TAB 325 MG TAB PO PRN (17:14)
[2022-09-14] MEDS ORDERED: traMADol 50 MG TAB PO PRN (17:14)
[2022-09-14] MEDS ORDERED: NALOXONE 0.4 MG/ML 1 ML VIAL IV PRN (17:14)
[2022-09-14 18:32] LABS: Basophils % (A) 0 %; Eosinophils % (A) 0 %; HCT 36.3 % (34.0-46.0); HGB 12.1 gm/dL (11.4-16.0); Lymphocytes # (A) 0.7 k/uL (1.0-4.8); Lymphocytes % (A) 6 %; MCH 32.8 pg (25.0-35.0); MCHC 33.4 g/dL (31.0-37.0); MCV 98.3 fL (80.0-100.0); Mean Platelet Volume 7.5; Monocytes # (A) 0.7 k/uL (0-1.0); Monocytes % (A) 6 %; Neutrophils # (A) 9.7 k/uL (1.3-7.7); Neutrophils % (A) 85 %; Platelet Count 286 k/uL (150-450); RDW 13.8 % (11.5-15.5); WBC 11.4 k/uL (3.8-10.6)
[2022-09-14 18:59] LABS: ALT 26 U/L (4-34); AST 35 U/L (14-36); African American GFR (CKD) 85 (>60 ml/min/1.73 sqM); Albumin 3.5 g/dL (3.5-5.0); Alkaline Phosphatase 143 U/L (38-126); Anion Gap 7 mmol/L; Blood Urea Nitrogen 22 mg/dL (7-17); Carbon Dioxide 30 mmol/L (22-30); Chloride 98 mmol/L (98-107); Glucose 242 mg/dL (74-99); Non-African American GFR(CKD) 73 (>60 ml/min/1.73 sqM); Potassium 4.3 mmol/L (3.5-5.1); Sodium 135 mmol/L (137-145); Total Bilirubin 0.6 mg/dL (0.2-1.3); Total Protein 7.4 g/dL (6.3-8.2)
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
[2022-09-14] MEDS: carvediloL 12.5 MG TAB PO SCH (20:09)
[2022-09-15] MEDS: LEVOTHYROXINE 112 MCG TAB PO SCH (06:01)
[2022-09-15] MEDS: carvediloL 12.5 MG TAB PO SCH ×2 (06:01→18:28)
[2022-09-15 06:42] LABS: INR 1.3 (<1.2); Prothrombin Time 12.8 sec (9.0-12.0)
[2022-09-15] MEDS ORDERED: VANCOMYCIN IV PER PHARMACY 1 EACH MISC MISCELLANE PRN ×2 (07:25→17:00)
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
[2022-09-15] MEDS ORDERED: DEXTROSE 50% SYRINGE 50 ML IVP PRN ×2 (08:24)
[2022-09-15] MEDS: hydroCHLOROthiazide 12.5 MG CAP PO SCH (08:39)
[2022-09-15 11:54] LABS: Glucose,Whole Blood 134 mg/dL (70-110)
[2022-09-15] MEDS ORDERED: LACTATED RINGERS 1,000 ML IV ONE ×2 (13:46→16:00)
[2022-09-15] MEDS ORDERED: ONDANSETRON 4 MG/2 ML VIAL IVP ONE (13:47)
[2022-09-15] MEDS ORDERED: ONDANSETRON 4 MG/2 ML VIAL ONE (13:48)
[2022-09-15] MEDS ORDERED: fentaNYL (PF) 50 MCG/ML 2 ML AMP ONE (13:55)
[2022-09-15] MEDS ORDERED: MIDAZOLAM 2 MG/2 ML VIAL ONE (13:55)
[2022-09-15] MEDS ORDERED: HYDROmorphone (PF) 1 MG/ML ONE (13:55)
[2022-09-15] MEDS ORDERED: PROPOFOL 10 MG/ML 20 ML VIAL IV ONE (13:55)
[2022-09-15] MEDS ORDERED: SUCCINYLCHOLINE CHLORIDE 200 MG/10 ML VIAL IV ONE (13:55)
[2022-09-15] MEDS ORDERED: CEFAZOLIN IRRIGATION ONE (14:17)
[2022-09-15] MEDS ORDERED: SODIUM CHLORIDE 0.9% IRRIGATION ONE (14:17)
[2022-09-15] MEDS ORDERED: NALOXONE 0.4 MG/ML 1 ML VIAL IV PRN (15:09)
[2022-09-15] MEDS ORDERED: MAGNESIUM HYDROXIDE 2,400 MG/10 ML CUP PO PRN (15:09)
[2022-09-15] MEDS ORDERED: HYDROcodone/APAP 5-325MG 1 EACH TAB PO PRN (15:09)
[2022-09-15] MEDS ORDERED: HYDROmorphone 0.5 MG/0.5 ML SYRINGE IVP PRN ×2 (15:09)
--- NOTE | 2022-09-15 15:35 | P.OP ---
Date of Procedure: 09/15/22 Preoperative Diagnosis: Status post right total knee arthroplasty with acute infection Postoperative Diagnosis: Same Procedure(s) Performed: Incision and drainage with irrigation and debridement right total knee arthroplasty/polyethylenetibial component exchange/synovectomy Implants: 10 mm posterior stabilized articular surface Anesthesia: YESSI Surgeon: Marcio Noyola Bran Mixer #1: Juventino Stanley Estimated Blood Loss (ml): 10 Pathology: other (Gram stain and synovial tissue) Condition: stable Disposition: PACU Indications for Procedure: The patient's a 67-year-old female who previously underwent a right total knee arthroplasty 7 months ago presents with progressive pain in the right knee for the past month. Initially at her 3 month postoperative visit she was doing quite well. Laboratory studies showed evidence of probable right knee infection. He discussion of the risks and benefits of operative intervention was made with patient. She opted to proceed. Operative options to include incision and drainage with irrigation and debridement and polyethylene exchange versus extraction of her implant and cement spacer implantation was discussed. She opted to proceed with irrigation and debridement with polyethylene exchange. She understands the risk of persistence of infection and possible need for subsequent procedures. Other associated risks were also discussed in layman's terms. Informed consent was obtained. Operative Findings: As below Description of Procedure: The patient was brought to the operating room, and after induction of general anesthesia right lower extremity was prepped and draped in normal fashion. The tourniquet was inflated to 270 mmHg. The previous midline incision was utilized. Skin was incised sharply. Subcu tissues were divided sharply. Electrocautery was used for hemostasis. The extensor mechanism was opened along the medial aspect. The medial soft tissues to include the superficial and deep portions medial collateral ligament were elevated subperiosteally. The knee was then flexed. Mild serosanguineous fluid was noted. Deep cultures were obtained. Synovial tissue was then excised sharply and sent for pathology. This showed greater than 5 neutrophils per high-powered field. Copious irrigation was then performed with pulsatile lavage utilizing 9 L of fluid. The polyethylene component was removed prior to this. The tibial and femoral components were felt to be stable and well fixed. A wide synovectomy was performed. The surgical team then changed gloves and exchanged for clean instruments. The medial parapatellar arthrotomy was closed with running #2 Ethibond suture. The subcutaneous tissues reapproximated interrupted 2-0 Vicryl sutures. The skin was reapproximated with 3-0 subcuticular strata fix suture. Skin tape and adhesive was applied. A sterile dressing was applied. The tourniquet was deflated less than 1 hour total tourniquet time. The patient was awoken from general anesthesia and transferred to recovery room in good condition. Blood loss was estimated at 50 mL. No complications were incurred. Sponge and needle counts were correct in the case. Juventino CAMPBELL assisted during the major components of the case.
[2022-09-15] MEDS ORDERED: VANCOMYCIN 1,750 MG in SODIUM CHLORIDE 0.9% 500 ML 500 ML IVPB SCH (16:00)
--- NOTE | 2022-09-15 16:15 | XR ---
EXAMINATION TYPE: XR knee limited RT DATE OF EXAM: 09/15/2022 CLINICAL HISTORY: Right knee pain and arthritis status post total knee replacement. TECHNIQUE: Portable AP and crosstable lateral views of the right knee are obtained immediately posto peratively. COMPARISON: None FINDINGS: Metallic hardware from total right knee arthroplasty is seen and appears satisfactory in a lignment and position. [place] osseous structures are demineralized. There is evidence of recent surg nella with diffuse subcutaneous gas and soft tissue swelling noted. IMPRESSION: METALLIC HARDWARE FROM TOTAL RIGHT KNEE ARTHROPLASTY IS SATISFACTORY IN ALIGNMENT.
[2022-09-15 16:19] LABS: Glucose,Whole Blood 122 mg/dL (70-110)
[2022-09-15] MEDS ORDERED: CEFEPIME 1 GM in SODIUM CHLORIDE 0.9% 50 ML IVPB SCH (17:00)
[2022-09-15] MEDS: INSULIN ASPART (NovoLOG) 100 UNIT/ML VIAL SQ SCH ×3 (18:10→20:37)
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
[2022-09-15] MEDS: HYDROcodone/APAP 7.5-325MG 1 EACH TAB PO PRN (20:32)
[2022-09-15] MEDS: SENNOSIDES-DOCUSATE SODIUM 1 EACH TAB PO SCH (20:32)
[2022-09-15] MEDS: VANCOMYCIN 1,750 MG in SODIUM CHLORIDE 0.9% 500 ML 500 ML IVPB SCH (20:32)
[2022-09-15 20:33] LABS: Glucose,Whole Blood 139 mg/dL (70-110)
[2022-09-16] MEDS ORDERED: CEFEPIME 1 GM in SODIUM CHLORIDE 0.9% 50 ML IVPB SCH ×2
[2022-09-16] MEDS: CEFEPIME 2 GM in SODIUM CHLORIDE 0.9% 100 ML IVPB SCH ×3 (00:26→18:12)
[2022-09-16] MEDS: HYDROcodone/APAP 7.5-325MG 1 EACH TAB PO PRN ×4 (02:20→20:27)
[2022-09-16 05:56] LABS: Glucose,Whole Blood 110 mg/dL (70-110)
[2022-09-16] MEDS: INSULIN ASPART (NovoLOG) 100 UNIT/ML VIAL SQ SCH ×4 (06:15→20:27)
[2022-09-16] MEDS: LEVOTHYROXINE 112 MCG TAB PO SCH (06:15)
[2022-09-16] MEDS: carvediloL 12.5 MG TAB PO SCH ×2 (06:15→17:46)
[2022-09-16] MEDS: hydroCHLOROthiazide 12.5 MG CAP PO SCH (08:08)
[2022-09-16] MEDS: RIVAROXABAN 10 MG TAB PO SCH (08:08)
[2022-09-16 08:43] LABS: Basophils # (A) 0.1 k/uL (0-0.2); Basophils % (A) 1 %; Eosinophils # (A) 0.2 k/uL (0-0.7); Eosinophils % (A) 2 %; HCT 37.4 % (34.0-46.0); HGB 12.1 gm/dL (11.4-16.0); Lymphocytes # (A) 0.7 k/uL (1.0-4.8); Lymphocytes % (A) 7 %; MCH 32.3 pg (25.0-35.0); MCHC 32.4 g/dL (31.0-37.0); MCV 99.8 fL (80.0-100.0); Macrocytosis Slight; Mean Platelet Volume 7.5; Monocytes # (A) 0.8 k/uL (0-1.0); Monocytes % (A) 8 %; Neutrophils # (A) 8.2 k/uL (1.3-7.7); Neutrophils % (A) 80 %; Platelet Count 275 k/uL (150-450); Poikilocytosis Slight; RBC 3.75 m/uL (3.80-5.40); RDW 14.5 % (11.5-15.5); WBC 10.3 k/uL (3.8-10.6)
[2022-09-16 08:53] LABS: African American GFR (CKD) 79 (>60 ml/min/1.73 sqM); Anion Gap 5 mmol/L; Blood Urea Nitrogen 27 mg/dL (7-17); Calcium 8.1 mg/dL (8.4-10.2); Carbon Dioxide 32 mmol/L (22-30); Chloride 99 mmol/L (98-107); Glucose 105 mg/dL (74-99); Non-African American GFR(CKD) 68 (>60 ml/min/1.73 sqM); Potassium 3.7 mmol/L (3.5-5.1); Sodium 136 mmol/L (137-145)
[2022-09-16 10:58] LABS: Glucose,Whole Blood 228 mg/dL (70-110)
--- NOTE | 2022-09-16 11:35 | P.PN ---
Subjective Progress Note Date: 09/16/22 Principal diagnosis: right total knee arthroplasty with acute infection Patient was seen at bedside this morning sitting up in chair icing right knee with Partha bandages present. Patient says she did get up with physical therapy this morning and use the bathroom. Patient says she has not had bowel movement yet, however, she says she has been passing gas. Patient says she has urinated since surgery. Patient says she has having some knee pain at this time and is located mostly at the front of the knee. Patient is unsure if she'll be able to go home versus rehab. Patient says during her initial surgery she did go to a swing bed rehab facility prior to going home. Patient denies fever, chest pain, nausea, shortness breath, change in vision, loss of bowel/bladder control. Objective - Vital Signs Vital signs: Vital Signs Temp 98.7 F 09/16/22 07:15 Pulse 62 09/16/22 07:15 Resp 16 09/16/22 07:15 BP 152/71 09/16/22 07:15 Pulse Ox 98 09/16/22 07:15 FiO2 Intake & Output 09/15/22 09/16/22 09/16/22 18:59 06:59 18:59 Intake Total 1101 840 Output Total 50 Balance 1051 840 Intake: IV 1101 Intake, IV Titration 600 Amount Vancomycin 1,750 mg In 500 Sodium Chloride 0.9% 500 ml 500 ml @ 167 mls/hr IVPB Q16H [facility] Rx#: [id number] ceFAZolin 2 gm In Sodium 100 Chloride 0.9% 50 ml @ 100 mls/hr IVPB ONCE ONE Rx# :[id number] Oral 240 Output: Estimated Blood Loss 50 Other: # Voids 3 2 - Exam Right knee: The Partha bandage is in good condition. We will maintain Partha bandage in place at this time. There is minimal soft tissue swelling and ecchymosis surrounding the medial and lateral aspects of the incision. Calf is soft, no tenderness with palpation. Plantar flexion, dorsiflexion, EHL, FHL are intact. Sensory exam to light touch throughout the extremity is intact, dorsal pedis pulses 2+. - Labs CBC & Chem 7: 09/16/22 07:48 09/16/22 07:48 Labs: Abnormal Lab Results - Last 24 Hours (Table) 09/15/22 09/15/22 09/15/22 Range/Units 08:18 11:52 16:11 RBC (3.80-5.40) m/uL Neutrophils # (1.3-7.7) k/uL Lymphocytes # (1.0-4.8) k/uL Sodium (137-145) mmol/L Carbon Dioxide (22-30) mmol/L BUN (7-17) mg/dL Glucose (74-99) mg/dL POC Glucose (mg/dL) 134 H 122 H (70-110) mg/dL Hemoglobin A1c 7.1 H % Calcium (8.4-10.2) mg/dL 09/15/22 09/16/22 09/16/22 Range/Units 20:30 07:48 07:48 RBC 3.75 L (3.80-5.40) m/uL Neutrophils # 8.2 H (1.3-7.7) k/uL Lymphocytes # 0.7 L (1.0-4.8) k/uL Sodium 136 L (137-145) mmol/L Carbon Dioxide 32 H (22-30) mmol/L BUN 27 H (7-17) mg/dL Glucose 105 H (74-99) mg/dL POC Glucose (mg/dL) 139 H (70-110) mg/dL Hemoglobin A1c % Calcium 8.1 L (8.4-10.2) mg/dL 09/16/22 Range/Units 10:57 RBC (3.80-5.40) m/uL Neutrophils # (1.3-7.7) k/uL Lymphocytes # (1.0-4.8) k/uL Sodium (137-145) mmol/L Carbon Dioxide (22-30) mmol/L BUN (7-17) mg/dL Glucose (74-99) mg/dL POC Glucose (mg/dL) 228 H (70-110) mg/dL Hemoglobin A1c % Calcium (8.4-10.2) mg/dL Assessment and Plan Assessment: 1. Status post right total knee arthroplasty with acute infection - Postoperative day 1 status post Incision and drainage with irrigation and debridement right total knee arthroplasty/polyethylenetibial component exchange/synovectomy Plan: 1. Status post right total knee arthroplasty with acute infection - surgery performed yesterday, 09/15/2022 - Incision and drainage with irrigation and debridement right total knee arthroplasty/polyethylenetibial component exchange/synovectomy. Patient stable at bedside this morning. Based dressing in place this time. We are awaiting final cultures before potential treatment intervention. Patient currently on cefepime IV. Pain medication as needed. Weight-bear as tolerated with walker. We'll continue to follow the patient daily. 2. Appreciate medical and infectious disease management 3. Pain management - [place]; Tylenol; Toradol 4. DVT prophylaxis - Xarelto 5. GI prophylaxis - milk of magnesia; senna 6. PT/OT - weightbearing as tolerated walker 7. Encourage incentive spirometer use 8. Discharge planning - awaiting final cultures before discharge. Discharge to rehab versus home Time with Patient: Less than 30
[2022-09-16] MEDS: VANCOMYCIN 1,750 MG in SODIUM CHLORIDE 0.9% 500 ML 500 ML IVPB SCH (12:21)
--- NOTE | 2022-09-16 14:32 | P.PN ---
Subjective Progress Note Date: 09/16/22 Principal diagnosis: Right knee septic arthritis Patient is a 67-year-old female with a past medical history of Hypertension, pancreatitis history of breast cancer and thyroid cancer status post thyroidectomy patient did have a right knee replacement about 6 months ago, presented to hospital with right knee pain patient has been diagnosed with right knee septic arthritis status post I&D and polyethylene exchange. On today's evaluation that is 09/16/2022, the patient denies having any fever or any chills patient is breathing comfortably patient pain to the right knee is currently controlled patient denies having any chest pain shortness of breath or cough no abdominal pain and no diarrhea Objective - Vital Signs Vital signs: Vital Signs Temp 98.7 F 09/16/22 07:15 Pulse 62 09/16/22 07:15 Resp 16 09/16/22 07:15 BP 152/71 09/16/22 07:15 Pulse Ox 98 09/16/22 07:15 FiO2 Intake & Output 09/15/22 09/16/22 09/16/22 18:59 06:59 18:59 Intake Total 1101 840 Output Total 50 Balance 1051 840 Intake: IV 1101 Intake, IV Titration 600 Amount Vancomycin 1,750 mg In 500 Sodium Chloride 0.9% 500 ml 500 ml @ 167 mls/hr IVPB Q16H [facility] Rx#: [id number] ceFAZolin 2 gm In Sodium 100 Chloride 0.9% 50 ml @ 100 mls/hr IVPB ONCE ONE Rx# :[id number] Oral 240 Output: Estimated Blood Loss 50 Other: # Voids 3 2 - Exam GENERAL DESCRIPTION: An elderly female up in the chair in no distress RESPIRATORY SYSTEM: Unlabored breathing , decreased breath sounds at bases HEART: S1 S2 regular rate and rhythm , ABDOMEN: Soft , no tenderness EXTREMITIES: Right knee is currently dressed - Labs CBC & Chem 7: 09/16/22 07:48 09/16/22 07:48 Labs: Abnormal Lab Results - Last 24 Hours (Table) 09/15/22 09/15/22 09/15/22 Range/Units 08:18 11:52 16:11 RBC (3.80-5.40) m/uL Neutrophils # (1.3-7.7) k/uL Lymphocytes # (1.0-4.8) k/uL Sodium (137-145) mmol/L Carbon Dioxide (22-30) mmol/L BUN (7-17) mg/dL Glucose (74-99) mg/dL POC Glucose (mg/dL) 134 H 122 H (70-110) mg/dL Hemoglobin A1c 7.1 H % Calcium (8.4-10.2) mg/dL 09/15/22 09/16/22 09/16/22 Range/Units 20:30 07:48 07:48 RBC 3.75 L (3.80-5.40) m/uL Neutrophils # 8.2 H (1.3-7.7) k/uL Lymphocytes # 0.7 L (1.0-4.8) k/uL Sodium 136 L (137-145) mmol/L Carbon Dioxide 32 H (22-30) mmol/L BUN 27 H (7-17) mg/dL Glucose 105 H (74-99) mg/dL POC Glucose (mg/dL) 139 H (70-110) mg/dL Hemoglobin A1c % Calcium 8.1 L (8.4-10.2) mg/dL Assessment and Plan (1) Septic arthritis of knee, right Current Visit: Yes Status: Acute Code(s): M00.9 - PYOGENIC ARTHRITIS, UNSPECIFIED SNOMED Code(s): 429874873 Plan: 1Patient is a 67-year-old female who did have a history of right knee replacement about 6 months ago now presenting with worsening pain to the right knee area and swelling fever concerning for right knee septic arthritis likely from gram-positive skin drew underlying gram-negative infection not entirely excluded 2Patient is status post surgical aspiration debridement and deep culture which are currently pending 3-patient to continue vancomycin pharmacy to dose along with cefepime while waiting for the culture to finalize Time with Patient: Less than 30
--- NOTE | 2022-09-16 14:44 | P.PN ---
Subjective Progress Note Date: 09/16/22 Patient is a 67 F with a history of breast cancer, thyroid cancer with thyroidectomy, HTN, and pancreatitis who presented to the hospital at the direction of Dr. Noyola due to concerns of infection of her right knee replacement that was completed approximately 6 months ago. In the ER she underwent an extensive evaluation. Her initial vital signs within normal limits. Initial laboratory analysis showed white blood cell count 11.4, sodium 135, glucose 242, an INR of 1.3. We were consulted for hypertension management. She underwent I&D with cultures on 09/15/22 and vancomycin and cefepime were started afterwards. Patient seen and examined at bedside. She states that her pain is barely tolerable at this point, she thinks she would benefit from increasing pain medications. She denies any chest pain, shortness breath, nausea, vomiting. She had one episode of nausea overnight but that has since resolved. We discussed that her hemoglobin A1c came back at 7.1 consistent with diabetes. At this time she does not want to take any medications but will pursue dietary changes. She is willing check her blood sugars daily as we discussed that if they're remaining above 200 it would increase her risk of continued infection and delayed wound healing. Vital signs reviewed General: nontoxic, no distress, appears at stated age Cardiovascular: S1S2 reg, no murmur, positive posterior tibial pulse bilateral, Lungs: CTA bilateral, no rhonchi, no rales , no accessory muscle use Abdominal: soft, nontender to palpation, no guarding, no appreciable organomegaly Ext: no gross muscle atrophy, right knee with dressing in place, no contractures Neuro: CN II-XI grossly intact, no focal neuro deficits Psych: Alert, oriented, appropriate affect Assessment: Infected right knee replacement, suspected septic arthritis DM 2 with hyperglycemia HTN Hyperglycemia Hypothyroidism Hx of Breast Cancer stage IV Imaging: Knee [id number] hardware from total right knee arthroplasty is in satisfactory alignment. Data Review: Vitals reviewed and T-max in the 24 hours 99.5 Labs reviewed and remarkable for sodium of 136, morning fasting blood sugar of 105, A1c 7.1, calcium 8.1 Wound cultures-pending Plan: -Obtain glucometer. Continue with sliding scale insulin. Patient does not want to be on medications at discharge but has agreed to check her blood sugars daily area -Continue with cefepime 2 g every 8 hours, Vancomycin, follow vancomycin trough and creatinine for toxicity, D # 2 -Ortho note reviewed: DVT prophylaxis Xarelto -Infectious disease note reviewed: Await cultures -Follow blood pressures, continue Coreg 12.5 mg by mouth twice a day and hydrochlorothiazide 12.5 mg daily -Case discussed with Genevieve johnson oncology nurse practitioner 09/15 and notify the patient has been holding Ibrance, will arrange for outpatient follow-up. - increase [place] 2-7.5 tablets every 6 hours for pain scale 6-10 Thank you for allowing us to participate in the care of this pleasant patient. Do not hesitate to contact us with questions. Someone can be reached from the [facility] hospitalist group all hours of the day at [phone] or via [employer]. This dictation was prepared using [employer] voice recognition software. Though every attempt is made to correct errors during dictation some may still exist. Objective - Vital Signs Vital signs: Vital Signs Temp 99.5 F 09/16/22 13:46 Pulse 81 09/16/22 13:46 Resp 16 09/16/22 13:46 BP 143/73 09/16/22 13:46 Pulse Ox 95 09/16/22 13:46 FiO2 Intake & Output 09/15/22 09/16/22 09/16/22 18:59 06:59 18:59 Intake Total 1101 840 Output Total 50 Balance 1051 840 Intake: IV 1101 Intake, IV Titration 600 Amount Vancomycin 1,750 mg In 500 Sodium Chloride 0.9% 500 ml 500 ml @ 167 mls/hr IVPB Q16H [facility] Rx#: [id number] ceFAZolin 2 gm In Sodium 100 Chloride 0.9% 50 ml @ 100 mls/hr IVPB ONCE ONE Rx# :[id number] Oral 240 Output: Estimated Blood Loss 50 Other: # Voids 3 2 - Labs CBC & Chem 7: 09/16/22 07:48 09/16/22 07:48 Labs: Abnormal Lab Results - Last 24 Hours (Table) 09/15/22 09/15/22 09/15/22 Range/Units 08:18 16:11 20:30 RBC (3.80-5.40) m/uL Neutrophils # (1.3-7.7) k/uL Lymphocytes # (1.0-4.8) k/uL Sodium (137-145) mmol/L Carbon Dioxide (22-30) mmol/L BUN (7-17) mg/dL Glucose (74-99) mg/dL POC Glucose (mg/dL) 122 H 139 H (70-110) mg/dL Hemoglobin A1c 7.1 H % Calcium (8.4-10.2) mg/dL 09/16/22 09/16/22 09/16/22 Range/Units 07:48 07:48 10:57 RBC 3.75 L (3.80-5.40) m/uL Neutrophils # 8.2 H (1.3-7.7) k/uL Lymphocytes # 0.7 L (1.0-4.8) k/uL Sodium 136 L (137-145) mmol/L Carbon Dioxide 32 H (22-30) mmol/L BUN 27 H (7-17) mg/dL Glucose 105 H (74-99) mg/dL POC Glucose (mg/dL) 228 H (70-110) mg/dL Hemoglobin A1c % Calcium 8.1 L (8.4-10.2) mg/dL Microbiology - Last 24 Hours (Table) 09/15/22 14:54 Gram Stain - Preliminary Knee - Right 09/15/22 14:53 Gram Stain - Preliminary Knee - Right
[2022-09-16 16:19] LABS: Glucose,Whole Blood 169 mg/dL (70-110)
[2022-09-16 20:18] LABS: Glucose,Whole Blood 210 mg/dL (70-110)
[2022-09-16] MEDS: SENNOSIDES-DOCUSATE SODIUM 1 EACH TAB PO SCH (20:27)
[2022-09-17] MEDS: CEFEPIME 2 GM in SODIUM CHLORIDE 0.9% 100 ML IVPB SCH ×3 (00:34→17:52)
[2022-09-17] MEDS: HYDROcodone/APAP 7.5-325MG 1 EACH TAB PO PRN ×3 (02:53→17:53)
[2022-09-17] MEDS: VANCOMYCIN 1,750 MG in SODIUM CHLORIDE 0.9% 500 ML 500 ML IVPB SCH ×2 (04:57→21:03)
[2022-09-17] MEDS: LEVOTHYROXINE 112 MCG TAB PO SCH (05:08)
[2022-09-17 05:37] LABS: Glucose,Whole Blood 150 mg/dL (70-110)
[2022-09-17] MEDS: INSULIN ASPART (NovoLOG) 100 UNIT/ML VIAL SQ SCH ×4 (06:04→20:57)
[2022-09-17 06:49] LABS: African American GFR (CKD) 86 (>60 ml/min/1.73 sqM); Anion Gap 6 mmol/L; Blood Urea Nitrogen 20 mg/dL (7-17); Calcium 7.8 mg/dL (8.4-10.2); Carbon Dioxide 27 mmol/L (22-30); Chloride 100 mmol/L (98-107); Glucose 143 mg/dL (74-99); Non-African American GFR(CKD) 75 (>60 ml/min/1.73 sqM); Potassium 3.6 mmol/L (3.5-5.1); Sodium 133 mmol/L (137-145)
[2022-09-17] MEDS: RIVAROXABAN 10 MG TAB PO SCH (09:40)
[2022-09-17] MEDS: carvediloL 12.5 MG TAB PO SCH ×2 (09:40→17:52)
[2022-09-17] MEDS: hydroCHLOROthiazide 12.5 MG CAP PO SCH (09:40)
[2022-09-17] MEDS ORDERED: bisacodyL 5 MG TABLET.DR PO PRN (11:03)
[2022-09-17 11:05] LABS: Glucose,Whole Blood 198 mg/dL (70-110)
--- NOTE | 2022-09-17 11:18 | P.PN ---
Subjective Progress Note Date: 09/17/22 Principal diagnosis: Right knee periprosthetic, status post I&D with polyethylene liner exchange patient is evaluated at bedside, she is resting comfortably. They've been working with trying to start in a in her left arm, she is scheduled for PICC line placement later today. We are waiting final culture and sensitivities. She does note some discomfort over the anterior aspect of the knee. She's been up and ambulating with the assistance of a walker. She currently denies headaches, lightheadedness, chest pain, fever or chills. Objective - Vital Signs Vital signs: Vital Signs Temp 98.3 F 09/17/22 07:10 Pulse 63 09/17/22 07:10 Resp 16 09/17/22 07:10 BP 136/68 09/17/22 07:10 Pulse Ox 99 09/17/22 07:10 FiO2 Intake & Output 09/16/22 09/17/22 09/17/22 18:59 06:59 18:59 Other: Voiding Method Toilet # Voids 2 2 - Exam Right lower extremity: Incision is clean, dry, and intact. The exofin fusion tape is in good c ondition. There is minimal soft tissue swelling and ecchymosis surrounding the medial and lateral aspects of the incision. Calf is soft, no tenderness with palpation. Plantar flexion, dorsiflexion, EHL, FHL are intact. Sensory exam to light touch throughout the extremity is intact, dorsal pedis pulses 2+. - Labs CBC & Chem 7: 09/16/22 07:48 09/17/22 05:26 Labs: Abnormal Lab Results - Last 24 Hours (Table) 09/16/22 09/16/22 09/17/22 Range/Units 16:17 20:17 05:26 Sodium 133 L (137-145) mmol/L BUN 20 H (7-17) mg/dL Glucose 143 H (74-99) mg/dL POC Glucose (mg/dL) 169 H 210 H (70-110) mg/dL Calcium 7.8 L (8.4-10.2) mg/dL 09/17/22 09/17/22 Range/Units 05:35 11:04 Sodium (137-145) mmol/L BUN (7-17) mg/dL Glucose (74-99) mg/dL POC Glucose (mg/dL) 150 H 198 H (70-110) mg/dL Calcium (8.4-10.2) mg/dL Microbiology - Last 24 Hours (Table) 09/15/22 14:54 Gram Stain - Preliminary Knee - Right 09/15/22 14:53 Gram Stain - Preliminary Knee - Right Assessment and Plan Assessment: Postoperative day #2 status post I&D and with irrigation and polyethylene liner exchange Plan: Pain control, continue with current medications DVT prophylaxis, continue with current medications Icing and elevating techniques discussed Continue to monitor surgical dressing, gauze change every 12 days Encourage incentive spirometer Weight-bear as tolerated Continue with PT/OT Other medical especially recommendations appreciated Awaiting culture/sensitivity results Discharge planning: Anticipated discharge to subacute rehab in the next 48 hours Time with Patient: Less than 30
[2022-09-17] MEDS ORDERED: IV FLUID CONTINUATION 1,000 ML IV ONE (12:03)
[2022-09-17] MEDS ORDERED: LIDOCAINE 1% INJ 10MG/ML (5 ML VIAL-PF) SQ ONE (12:23)
--- NOTE | 2022-09-17 12:41 | IR ---
PICC LINE PLACEMENT: HISTORY: Infection requiring long-term antibiotic therapy PROCEDURE: Ultrasound and fluoroscopic guidance of PICC line placement. COMPLICATIONS: None ANESTHESIA: 1. 1% Lidocaine locally. FINDINGS/TECHNIQUE: The procedure was explained to the patient. The risks, complications, benefits and alternatives were discussed and any questions were answered. Informed consent was obtained. The patient was placed supine on the fluoroscopic table and prepped and draped in the usual sterile fash ion. Utilizing a 21 gauge needle and sonographic and fluoroscopic guidance, access in the left basi lic vein was achieved and there is placement of a 0.018 guidewire. The vein is patent. A 4-F sheath was placed over the guidewire. The guidewire and dilator were removed and a 4-F. PICC line was plac ed through the sheath with the tip at the level of the SVC. The sheath was removed, the catheter was flushed and sutured into position. The patient was stable throughout the procedure and remained sta ble upon discharge from the Department of Radiology. The vein puncture was patent under ultrasound. A frausto scale image was obtained to document patency of the vein punctured. All elements of the maximal barrier technique were utilized. FLUOROSCOPY TIME: DAP 0.03862Th cm2 IMPRESSION: Successful PICC line placement under ultrasound and fluoroscopic guidance.
--- NOTE | 2022-09-17 13:32 | P.PN ---
Subjective Progress Note Date: 09/17/22 Patient is a 67 F with a history of breast cancer, thyroid cancer with thyroidectomy, HTN, and pancreatitis who presented to the hospital at the direction of Dr. Noyola due to concerns of infection of her right knee replacement that was completed approximately 6 months ago. In the ER she underwent an extensive evaluation. Her initial vital signs within normal limits. Initial laboratory analysis showed white blood cell count 11.4, sodium 135, glucose 242, an INR of 1.3. We were consulted for hypertension management. She underwent I&D with cultures on 09/15/22 and vancomycin and cefepime were started afterwards. Patient seen and examined at bedside. She states that her pain is barely tolerable at this point, she thinks she would benefit from increasing pain medications. She denies any chest pain, shortness breath, nausea, vomiting. She had one episode of nausea overnight but that has since resolved. We discussed that her hemoglobin A1c came back at 7.1 consistent with diabetes. At this time she does not want to take any medications but will pursue dietary changes. She is willing check her blood sugars daily as we discussed that if they're remaining above 200 it would increase her risk of continued infection and delayed wound healing. Vital signs reviewed General: nontoxic, no distress, appears at stated age Cardiovascular: S1S2 reg, no murmur, positive posterior tibial pulse bilateral, Lungs: CTA bilateral, no rhonchi, no rales , no accessory muscle use Abdominal: soft, nontender to palpation, no guarding, no appreciable organomegaly Ext: no gross muscle atrophy, right knee with dressing in place, no contractures Neuro: CN II-XI grossly intact, no focal neuro deficits Psych: Alert, oriented, appropriate affect Assessment: Infected right knee replacement, suspected septic arthritis DM 2 with hyperglycemia, newly discovered HTN Hypothyroidism Hx of Breast Cancer stage IV Imaging: none new Data Review: Vital signs reviewed and T-max in the last 24 hours 99.5 Plan: -Plan is for PICC line today -Await wound cultures -Repeat CBC and BMP along with vancomycin trough in a.m. -glucometer ordered. Continue with sliding scale insulin. Patient does not want to be on medications at discharge but has agreed to check her blood sugars daily area -Continue with cefepime 2 g every 8 hours, Vancomycin, follow vancomycin trough and creatinine for toxicity, D #3 - awaiit further ortho and ID recs -Follow blood pressures, continue Coreg 12.5 mg by mouth twice a day and hydrochlorothiazide 12.5 mg daily -Case discussed with Genevieve johnson oncology nurse practitioner 09/15 and notified her the patient has been holding Ibrance, follow-up 10/01 at 0945 - Continue with Danielson 2-7.5 tablets every 6 hours for pain scale 6-10 Thank you for allowing us to participate in the care of this pleasant patient. Do not hesitate to contact us with questions. Someone can be reached from the [facility] hospitalist group all hours of the day at [phone] or via [employer]. This dictation was prepared using [employer] voice recognition software. Though every attempt is made to correct errors during dictation some may still exist. Objective - Vital Signs Vital signs: Vital Signs Temp 98.3 F 09/17/22 07:10 Pulse 63 09/17/22 07:10 Resp 16 09/17/22 07:10 BP 136/68 09/17/22 07:10 Pulse Ox 99 09/17/22 07:10 FiO2 Intake & Output 09/16/22 09/17/22 09/17/22 18:59 06:59 18:59 Intake Total 50 Balance 50 Intake: IV 50 Other: Voiding Method Toilet # Voids 2 2 - Labs CBC & Chem 7: 09/16/22 07:48 09/17/22 05:26 Labs: Abnormal Lab Results - Last 24 Hours (Table) 09/16/22 09/16/22 09/17/22 Range/Units 16:17 20:17 05:26 Sodium 133 L (137-145) mmol/L BUN 20 H (7-17) mg/dL Glucose 143 H (74-99) mg/dL POC Glucose (mg/dL) 169 H 210 H (70-110) mg/dL Calcium 7.8 L (8.4-10.2) mg/dL 09/17/22 09/17/22 Range/Units 05:35 11:04 Sodium (137-145) mmol/L BUN (7-17) mg/dL Glucose (74-99) mg/dL POC Glucose (mg/dL) 150 H 198 H (70-110) mg/dL Calcium (8.4-10.2) mg/dL Microbiology - Last 24 Hours (Table) 09/15/22 14:54 Gram Stain - Preliminary Knee - Right 09/15/22 14:53 Gram Stain - Preliminary Knee - Right
[2022-09-17 16:17] LABS: Glucose,Whole Blood 179 mg/dL (70-110)
[2022-09-17 20:54] LABS: Glucose,Whole Blood 132 mg/dL (70-110)
[2022-09-17] MEDS: SENNOSIDES-DOCUSATE SODIUM 1 EACH TAB PO SCH (21:00)
--- NOTE | 2022-09-17 22:32 | P.PN ---
Subjective Progress Note Date: 09/17/22 Principal diagnosis: Right knee septic arthritis Patient is a 67-year-old female with a past medical history of Hypertension, pancreatitis history of breast cancer and thyroid cancer status post thyroidectomy patient did have a right knee replacement about 6 months ago, presented to hospital with right knee pain patient has been diagnosed with right knee septic arthritis status post I&D and polyethylene exchange. On today's evaluation that is 09/17/2022, the patient remains to be afebrile, patient is breathing comfortably on room air, patient pain to the right knee is currently controlled patient denies having any chest pain shortness of breath or cough no abdominal pain and no diarrhea Objective - Vital Signs Vital signs: Vital Signs Temp 98.3 F 09/17/22 07:10 Pulse 63 09/17/22 07:10 Resp 16 09/17/22 07:10 BP 136/68 09/17/22 07:10 Pulse Ox 99 09/17/22 07:10 FiO2 Intake & Output 09/16/22 09/17/22 09/17/22 18:59 06:59 18:59 Other: Voiding Method Toilet # Voids 2 2 - Exam GENERAL DESCRIPTION: An elderly female up in the chair in no distress RESPIRATORY SYSTEM: Unlabored breathing , decreased breath sounds at bases HEART: S1 S2 regular rate and rhythm , ABDOMEN: Soft , no tenderness EXTREMITIES: Right knee is currently dressed - Labs CBC & Chem 7: 09/16/22 07:48 09/17/22 05:26 Labs: Abnormal Lab Results - Last 24 Hours (Table) 09/16/22 09/16/22 09/16/22 Range/Units 10:57 16:17 20:17 Sodium (137-145) mmol/L BUN (7-17) mg/dL Glucose (74-99) mg/dL POC Glucose (mg/dL) 228 H 169 H 210 H (70-110) mg/dL Calcium (8.4-10.2) mg/dL 09/17/22 09/17/22 Range/Units 05:26 05:35 Sodium 133 L (137-145) mmol/L BUN 20 H (7-17) mg/dL Glucose 143 H (74-99) mg/dL POC Glucose (mg/dL) 150 H (70-110) mg/dL Calcium 7.8 L (8.4-10.2) mg/dL Microbiology - Last 24 Hours (Table) 09/15/22 14:54 Gram Stain - Preliminary Knee - Right 09/15/22 14:53 Gram Stain - Preliminary Knee - Right Assessment and Plan (1) Septic arthritis of knee, right Current Visit: Yes Status: Acute Code(s): M00.9 - PYOGENIC ARTHRITIS, UNSPECIFIED SNOMED Code(s): 951377565 Plan: 1Patient is a 67-year-old female who did have a history of right knee replacement about 6 months ago now presenting with worsening pain to the right knee area and swelling fever concerning for right knee septic arthritis likely from gram-positive skin drew underlying gram-negative infection not entirely excluded 2Patient is status post surgical aspiration debridement and deep culture which are currently growing gram-negative bacilli 3-patient will be continued on cefepime while waiting for the culture to finalize however discontinue vancomycin PICC line has been ordered for outpatient IV antibiotics Time with Patient: Less than 30
[2022-09-18] MEDS: HYDROcodone/APAP 7.5-325MG 1 EACH TAB PO PRN ×3 (00:07→13:50)
[2022-09-18] MEDS: CEFEPIME 2 GM in SODIUM CHLORIDE 0.9% 100 ML IVPB SCH ×2 (00:08→08:15)
[2022-09-18 05:49] LABS: Glucose,Whole Blood 139 mg/dL (70-110)
[2022-09-18] MEDS: INSULIN ASPART (NovoLOG) 100 UNIT/ML VIAL SQ SCH ×2 (05:54→13:12)
[2022-09-18] MEDS: LEVOTHYROXINE 112 MCG TAB PO SCH (06:19)
[2022-09-18 07:48] VITALS: BP 105/66; PULSE 69; RESP 16; TEMP 98.1
[2022-09-18] MEDS: carvediloL 12.5 MG TAB PO SCH (08:15)
[2022-09-18] MEDS: hydroCHLOROthiazide 12.5 MG CAP PO SCH (08:15)
[2022-09-18] MEDS: RIVAROXABAN 10 MG TAB PO SCH (08:15)
[2022-09-18] MEDS ORDERED: VANCOMYCIN TROUGH DUE 1 EACH MISC MISCELLANE ONE (11:00)
[2022-09-18 11:03] LABS: HCT 33.4 % (34.0-46.0); MCH 33.3 pg (25.0-35.0); MCHC 33.1 g/dL (31.0-37.0); MCV 100.6 fL (80.0-100.0); Macrocytosis Slight; Mean Platelet Volume 8.7; Platelet Count 183 k/uL (150-450); Poikilocytosis Slight; RBC 3.32 m/uL (3.80-5.40); WBC 7.2 k/uL (3.8-10.6)
[2022-09-18 11:10] LABS: African American GFR (CKD) >90 (>60 ml/min/1.73 sqM); Anion Gap 2 mmol/L; Blood Urea Nitrogen 17 mg/dL (7-17); Calcium 7.9 mg/dL (8.4-10.2); Carbon Dioxide 32 mmol/L (22-30); Chloride 99 mmol/L (98-107); Glucose 193 mg/dL (74-99); Non-African American GFR(CKD) 78 (>60 ml/min/1.73 sqM); Potassium 3.6 mmol/L (3.5-5.1); Sodium 133 mmol/L (137-145)
[2022-09-18 11:25] LABS: Glucose,Whole Blood 199 mg/dL (70-110)
[2022-09-18 11:42] LABS: Band Neutrophils % 1 %; Eosinophils # (M) 0.22 k/uL (0-0.7); Lymphocytes # (M) 0.72 k/uL (1.0-4.8); Monocytes # (M) 0.36 k/uL (0-1.0); Neutrophils % (M) 81 %; Nucleated Red Blood Cells 0 /100 WBC (0-0); Total Cells Counted 100
--- NOTE | 2022-09-18 12:25 | P.PN ---
Subjective Progress Note Date: 09/18/22 Principal diagnosis: right total knee arthroplasty with acute infection Patient was seen at bedside this morning sitting up in chair with legs elevated. Patient says she has been up walking around the room with therapy daily. Patient says she has urinated several times since surgery. Patient says she is still having some knee pain at the front of the knee mostly. Patient says she is hoping to go to rehab on discharge. Patient denies fever, chest pain, nausea, shortness breath, change in vision, loss of bowel/bladder control. Objective - Vital Signs Vital signs: Vital Signs Temp 98.1 F 09/18/22 07:15 Pulse 69 09/18/22 07:15 Resp 16 09/18/22 07:15 BP 105/66 09/18/22 07:15 Pulse Ox 95 09/18/22 07:15 FiO2 Intake & Output 09/17/22 09/18/22 09/18/22 18:59 06:59 18:59 Intake Total 50 Balance 50 Intake: IV 50 Other: Voiding Method Toilet Toilet # Voids 3 - Exam Right knee: Incision is clean, dry, and intact. The exofin fusion tape is in good condition. There is minimal soft tissue swelling and ecchymosis surrounding the medial and lateral aspects of the incision. Calf is soft, no tenderness with palpation. Plantar flexion, dorsiflexion, EHL, FHL are intact. Sensory exam to light touch throughout the extremity is intact, dorsal pedis pulses 2+. - Labs CBC & Chem 7: 09/18/22 10:39 09/18/22 10:39 Labs: Abnormal Lab Results - Last 24 Hours (Table) 09/17/22 09/17/22 09/17/22 Range/Units 11:04 16:14 20:53 POC Glucose (mg/dL) 198 H 179 H 132 H (70-110) mg/dL 09/18/22 Range/Units 05:47 POC Glucose (mg/dL) 139 H (70-110) mg/dL Microbiology - Last 24 Hours (Table) 09/15/22 14:54 Gram Stain - Preliminary Knee - Right Wound Culture - Preliminary Gram Neg Bacilli 09/15/22 14:53 Gram Stain - Preliminary Knee - Right Wound Culture - Preliminary Gram Neg Bacilli Assessment and Plan Assessment: 1. Status post right total knee arthroplasty with acute infection - Postoperative day 3 status post Incision and drainage with irrigation and debridement right total knee arthroplasty/polyethylenetibial component exchange/synovectomy Plan: 1. Status post right total knee arthroplasty with acute infection - surgery performed 09/15/2022 - Incision and drainage with irrigation and debridement right total knee arthroplasty/polyethylenetibial component exchange/synovectomy. Patient stable at bedside this morning. Preliminary cultures showed gram-negative bacilli. Lab was called and culture showed Klebsiella oxytoca. Patient currently on cefepime IV. PICC Line in place. Pain medication as needed. Weight-bear as tolerated with walker. Discharge to rehab later today once culture is finalized. 2. Appreciate medical and infectious disease management 3. Pain management - Cash; Tylenol; Toradol 4. DVT prophylaxis - xarelto in hospital aspirin 325 daily once at rehab 5. GI prophylaxis - milk of magnesia; senna 6. PT/OT - weightbearing as tolerated walker 7. Encourage incentive spirometer use 8. Discharge planning - plan for discharge to rehab later today. Time with Patient: Less than 30
--- NOTE | 2022-09-18 12:38 | P.DS ---
Providers Date of admission: 09/14/22 16:58 Expected date of discharge: 09/18/22 Attending physician: Marcio Noyola Consults: 09/14/22 15:59 Consult Physician Routine Consulting Provider: Gunnar Rodriguez Consult Reason/Comments: Right knee infection, status post arthroplasty, abx treatment Do you want consulting provider notified?: Yes 09/14/22 17:14 Consult Physician Routine Consulting Provider: Mary Jane Hutchins Consult Reason/Comments: medical management Do you want consulting provider notified?: Yes Primary care physician: Linnea Swain MD Hospital Course: Date of admission: 09/14/2022 Date of discharge: 09/18/2022 Admission diagnosis: right total knee arthroplasty with acute infection Discharge diagnosis: Same Attending physician: Dr. Noyola Surgical procedures: Incision and drainage with irrigation and debridement right total knee arthroplasty/polyethylenetibial component exchange/synovectomy Brief history: Patient is a 67-year-old female with a history of right total knee arthroplasty with acute infection. At this point patient has failed conservative treatment measures and has opted to proceed with a elective I&D with irrigation debridement right total knee arthroplasty/polyethylenetibial component exchange/synovectomy. Hospital course: Details of patient's surgery can be found in operative report. Patient tolerated the procedure well and was subsequently transported to orthopedic floor. Patient's orthopeidc and medical care was provided daily. Patient had daily laboratory tests performed for evaluation of overall blood counts. Patient had daily physical therapy to include strengthening range of motion as well as education with walker ambulation. Patient was treated with Xarelto for their postoperative DVT prophylaxis during their inpatient stay. Patient was noted to have a relatively uneventful postoperative course. Patient reported satisfactory pain control with oral pain medications by postoperative day 1. Patient showed satisfactory progress with physical therapy. Patient moved steadily through the program and had no difficulty meeting the goals by postoperative day 3. Given patient's otherwise satisfactory course and having met physical therapy goals, plan is to discharge patient to rehab on postoperative day 3. Discharge condition/disposition: Patient will be discharged to rehab in stable condition. Discharge medications: Instructions are given on resumption of patient's normal daily medications per primary care recommendation, in addition patient will be prescribed Castlewood; aspirin 325 mg daily; senna. Orthopedic Discharge Instructions: 1. Wound care and infection precautions, keep incision dry and covered while showering, no lotions, creams, moisturizers. No soaking, pools, hot tubs. Do not scrub over incision. 2. Weight-bear as tolerated with walker / cane until follow-up. 3. Ice and elevate when necessary. Do not exceed 20 minutes per hour with ice pack. 4. Utilize compression sleeve until seen at first follow up appointment. 5. Pain meds and anticoagulants per prescription. 6. Pain medication has potential to cause constipation. Increase oral fluid and fiber intake. Contact primary care provider if you have not had a bowel movement within 48 hours after discharge. 7. No anti-inflammatory medication until discussed at first post operative visit, this including Motrin, Aleve, Mobic, Diclofenac. 8. Follow up in office at 2 weeks postop with Hemal Carranza PA-C / Juventino Stanley PA-C 9. Follow up with your primary care doctor 7-10 days after discharge. 10. Contact [facility] with any questions, . Keep incision clean, dry, intact. Do not submerge incision in water. Follow-up in office in 2 weeks. Medications: Castlewood 7.5 mg/325 mg 1 every 6 hours; senna; aspirin 325 mg daily Assessment: Status post right total knee arthroplasty with acute infection Procedures: Incision and drainage with irrigation and debridement right total knee arthroplasty/polyethylenetibial component exchange/synovectomy Patient Condition at Discharge: Good Plan - Discharge Summary New Discharge Prescriptions: New HYDROcodone/APAP 7.5-325MG [Castlewood 7.5-325] 1 tab PO Q6HR PRN #28 tab PRN Reason: Pain Aspirin 325 mg PO DAILY #21 tab Sennosides/Docusate Sodium [Senna Plus 8.6-50 mg Softgel] 1 each PO DAILY #20 capsule No Action carvediloL [Coreg*] 12.5 mg PO BID Levothyroxine Sodium [Euthyrox] 112 mcg PO DAILY Multivitamins, Thera [Multivitamin (formulary)] 1 tab PO DAILY methylPREDNISolone Dose Pack [Medrol Dose Pack] See Taper PO DIRECTED hydroCHLOROthiazide 12.5 mg PO DAILY Discharge Medication List carvediloL [Coreg*] 12.5 mg PO BID 07/20/17 [History] Levothyroxine Sodium [Euthyrox] 112 mcg PO DAILY 03/19/22 [History] Multivitamins, Thera [Multivitamin (formulary)] 1 tab PO DAILY 09/14/22 [History] hydroCHLOROthiazide 12.5 mg PO DAILY 09/14/22 [History] methylPREDNISolone Dose Pack [Medrol Dose Pack] See Taper PO DIRECTED 09/14/22 [History] Aspirin 325 mg PO DAILY #21 tab 09/18/22 [Rx] HYDROcodone/APAP 7.5-325MG [Castlewood 7.5-325] 1 tab PO Q6HR PRN #28 tab 09/18/22 [Rx] Sennosides/Docusate Sodium [Senna Plus 8.6-50 mg Softgel] 1 each PO DAILY #20 capsule 09/18/22 [Rx] Follow up Appointment(s)/Referral(s): Huma Pace NPC [Nurse Practitioner] - 10/01/22 9:45 am Juventino Stanley PAC [PHYSICIAN IN SERVICE COORDINATOR] - 2 Weeks Kurt Suarez NPC [REFERRING] - 1-2 days Gunnar Rodriguez MD [STAFF PHYSICIAN] - 2 Weeks Patient Instructions/Handouts: Knee Replacement (DC), Incision and Drainage (DC) Activity/Diet/Wound Care/Special Instructions: [facility] Orthopedic Discharge Instructions: 1. Wound care and infection precautions, keep incision dry and covered while showering, no lotions, creams, moisturizers. No soaking, pools, hot tubs. Do not scrub over incision. 2. Weight-bear as tolerated with walker / cane until follow-up. 3. Ice and elevate when necessary. Do not exceed 20 minutes per hour with ice pack. 4. Utilize compression sleeve until seen at first follow up appointment. 5. Pain meds and anticoagulants per prescription. 6. Pain medication has potential to cause constipation. Increase oral fluid and fiber intake. Contact primary care provider if you have not had a bowel movement within 48 hours after discharge. 7. No anti-inflammatory medication until discussed at first post operative visit, this including Motrin, Aleve, Mobic, Diclofenac. 8. Follow up in office at 2 weeks postop with Hemal Carranza PA-C / Juventino Stanley PA-C 9. Follow up with your primary care doctor 7-10 days after discharge. 10. Contact [facility] with any questions, . Keep incision clean, dry, intact. Do not submerge incision in water. Follow-up in office in 2 weeks. Medications: Castlewood 7.5 mg/325 mg 1 every 6 hours; senna; aspirin 325 mg daily Discharge Disposition: TRANSFER TO SNF/ECF
--- NOTE | 2022-09-18 15:18 | P.PN ---
Subjective Progress Note Date: 09/18/22 Principal diagnosis: Right knee septic arthritis Patient is a 67-year-old female with a past medical history of Hypertension, pancreatitis history of breast cancer and thyroid cancer status post thyroidectomy patient did have a right knee replacement about 6 months ago, presented to hospital with right knee pain patient has been diagnosed with right knee septic arthritis status post I&D and polyethylene exchange. On today's evaluation that is 09/18/2022, the patient continuous to be afebrile, patient is breathing comfortably on room air, patient pain to the right knee has decreased in intensity, patient denies having any chest pain shortness of breath or cough no abdominal pain and no diarrhea Objective - Vital Signs Vital signs: Vital Signs Temp 98.1 F 09/18/22 07:15 Pulse 69 09/18/22 07:15 Resp 16 09/18/22 07:15 BP 105/66 09/18/22 07:15 Pulse Ox 95 09/18/22 07:15 FiO2 Intake & Output 09/17/22 09/18/22 09/18/22 18:59 06:59 18:59 Intake Total 50 Balance 50 Intake: IV 50 Other: Voiding Method Toilet Toilet # Voids 3 - Exam GENERAL DESCRIPTION: An elderly female up in the chair in no distress RESPIRATORY SYSTEM: Unlabored breathing , decreased breath sounds at bases HEART: S1 S2 regular rate and rhythm , ABDOMEN: Soft , no tenderness EXTREMITIES: Right knee is currently dressed - Labs CBC & Chem 7: 09/18/22 10:39 09/18/22 10:39 Labs: Abnormal Lab Results - Last 24 Hours (Table) 09/17/22 09/17/22 09/17/22 Range/Units 11:04 16:14 20:53 POC Glucose (mg/dL) 198 H 179 H 132 H (70-110) mg/dL 09/18/22 Range/Units 05:47 POC Glucose (mg/dL) 139 H (70-110) mg/dL Microbiology - Last 24 Hours (Table) 09/15/22 14:54 Gram Stain - Preliminary Knee - Right Wound Culture - Preliminary Gram Neg Bacilli 09/15/22 14:53 Gram Stain - Preliminary Knee - Right Wound Culture - Preliminary Gram Neg Bacilli Assessment and Plan (1) Septic arthritis of knee, right Status: Acute Code(s): M00.9 - PYOGENIC ARTHRITIS, UNSPECIFIED SNOMED Code( s): 244305264 Plan: 1Patient is a 67-year-old female who did have a history of right knee replacement about 6 months ago now presenting with worsening pain to the right knee area and swelling fever concerning for right knee septic arthritis likely from gram-positive skin drew underlying gram-negative infection not entirely excluded 2Patient is status post surgical aspiration debridement and deep culture which are currently growing Klebsiella 3-patient local cultures grew Klebsiella that is sensitive to ceftriaxone antibiotic has been switched over to Rocephin 2 g daily for 6 weeks with weekly monitoring of CRP sed rate and a close outpatient follow-up, patient did have multiple questions and concerns were answered Time with Patient: Less than 30
--- NOTE | 2022-09-18 15:29 | P.PN ---
Subjective Progress Note Date: 09/18/22 Patient is a 67 F with a history of breast cancer, thyroid cancer with thyroidectomy, HTN, and pancreatitis who presented to the hospital at the direction of Dr. Noyola due to concerns of infection of her right knee replacement that was completed approximately 6 months ago. In the ER she underwent an extensive evaluation. Her initial vital signs within normal limits. Initial laboratory analysis showed white blood cell count 11.4, sodium 135, glucose 242, an INR of 1.3. We were consulted for hypertension management. She underwent I&D with cultures on 09/15/22 and vancomycin and cefepime were started afterwards. Pt doing well today. Micro speciated to Klebsiella, switched to ceftriaxone for discharge. Gen: awake, alert HEENT: normocephalic, atraumatic, good hearing acuity, moist mucous membranes Resp: good air exchange, breathing comfortably with no accessory muscle use CVS: good distal perfusion x 4, GI: soft, NTTP, ND : no SPT, no CVAT, brown catheter not present MSK: no pitting edema, no clubbing Neuro: non-focal, moving all extremities Psych: cooperative, euthymic mood Assessment: Infected right knee replacement, suspected septic arthritis DM 2 with hyperglycemia, newly discovered HTN Hypothyroidism Hx of Breast Cancer stage IV Imaging: none new Data Review: Vital signs reviewed and T-max in the last 24 hours 99.5 Plan: Today, patient is HDS. Micro reviewed, growing Klebsiella oxytoca Discussed with ortho, patient should require custodial IV abx, but is stable for discharge medically Objective - Vital Signs Vital signs: Vital Signs Temp 98.1 F 09/18/22 07:15 Pulse 69 09/18/22 07:15 Resp 16 09/18/22 07:15 BP 105/66 09/18/22 07:15 Pulse Ox 95 09/18/22 07:15 FiO2 Intake & Output 09/17/22 09/18/22 09/18/22 18:59 06:59 18:59 Intake Total 50 Balance 50 Intake: IV 50 Other: Voiding Method Toilet Toilet # Voids 3 - Labs CBC & Chem 7: 09/18/22 10:39 09/18/22 10:39 Labs: Abnormal Lab Results - Last 24 Hours (Table) 09/17/22 09/17/22 09/18/22 Range/Units 16:14 20:53 05:47 RBC (3.80-5.40) m/uL Hgb (11.4-16.0) gm/dL Hct (34.0-46.0) % MCV (80.0-100.0) fL Lymphocytes # (Manual) (1.0-4.8) k/uL Sodium (137-145) mmol/L Carbon Dioxide (22-30) mmol/L Glucose (74-99) mg/dL POC Glucose (mg/dL) 179 H 132 H 139 H (70-110) mg/dL Calcium (8.4-10.2) mg/dL 09/18/22 09/18/22 09/18/22 Range/Units 10:39 10:39 11:24 RBC 3.32 L (3.80-5.40) m/uL Hgb 11.0 L (11.4-16.0) gm/dL Hct 33.4 L (34.0-46.0) % MCV 100.6 H (80.0-100.0) fL Lymphocytes # (Manual) 0.72 L (1.0-4.8) k/uL Sodium 133 L (137-145) mmol/L Carbon Dioxide 32 H (22-30) mmol/L Glucose 193 H (74-99) mg/dL POC Glucose (mg/dL) 199 H (70-110) mg/dL Calcium 7.9 L (8.4-10.2) mg/dL Microbiology - Last 24 Hours (Table) 09/15/22 14:54 Gram Stain - Preliminary Knee - Right Wound Culture - Preliminary Gram Neg Bacilli 09/15/22 14:53 Gram Stain - Preliminary Knee - Right Wound Culture - Preliminary Gram Neg Bacilli
== END 2022-09-18 14:40 | DRG 467 ==
LOC: EC 15:18 → 4SSUR 16:58
PROVIDERS: ADMIT Orthopaedic Surgery; ATTEND Orthopaedic Surgery
DX: T84.53XA Infection and inflammatory reaction due to internal right knee prosthesis, initial encounter (principal); M00.9 Pyogenic arthritis, unspecified; Y83.1 Surgical operation with implant of artificial internal device as the cause of abnormal reaction of the patient, or of later complication, without mention of misadventure at the time of the procedure; Z85.3 Personal history of malignant neoplasm of breast; Z85.850 Personal history of malignant neoplasm of thyroid; E89.0 Postprocedural hypothyroidism; I10 Essential (primary) hypertension; K08.119 Complete loss of teeth due to trauma, unspecified class; M19.90 Unspecified osteoarthritis, unspecified site; Z79.2 Long term (current) use of antibiotics; Z79.82 Long term (current) use of aspirin; Z79.890 Hormone replacement therapy; Z79.899 Other long term (current) drug therapy; Z98.1 Arthrodesis status; Z90.710 Acquired absence of both cervix and uterus; Z88.2 Allergy status to sulfonamides
CPT/HCPCS: 36410; 36573; 76937; 80048; 80053; 83036; 85025; 85610; 85652; 86140; 87070; 87075; 87077; 87186; 87205; 88305; 88331; 99285

== ENCOUNTER → 2023-02-11 | Outpatient (CLI) | payer MEDICARE, OTHER ==
--- NOTE | 2023-02-14 15:27 | PE ---
EXAMINATION TYPE: PET CT fusion skull to thigh DATE OF EXAM: 02/11/2023 COMPARISON: No recent pertinent CT. Prior PET/CT: 07/25/2022 HISTORY: Breast cancer TECHNIQUE: Following the intravenous administration of 11.27 mCi of F-18 FDG, whole body images are performed from the skull base to the midthigh. Images are reviewed on the computer in the coronal, a xial, and sagittal planes. Reconstructed rotating images are created on independent workstation and reviewed on the computer. A localization and attenuation correction CT is performed in conjunction with the PET scan. DLP: 1009.18 mGycm SCAN: Subsequent Blood glucose: 123 mg/dL Average Mediastinum SUV: 2.16 Average Liver SUV: 2.68 FINDINGS: NECK: No abnormal uptake THORAX: No abnormal uptake ABDOMEN: No abnormal uptake PELVIS: No abnormal uptake OSSEOUS STRUCTURES: No abnormal uptake LOCALIZATION CT: Mild coronary artery calcification is present. There is within the biliary tree. The stent is evident in the liver. Spleen is somewhat prominent. Left hip pin is evident. COMPARISON: No significant interval changes. IMPRESSION: 1. No suspicious focal areas of abnormal uptake to suggest metastatic disease.
== END | disposition home or self-care (01) ==
LOC: RADPETMAIN 10:41
PROVIDERS: ATTEND Internal Medicine Hematology & Oncology
DX: C50.811 Malignant neoplasm of overlapping sites of right female breast (principal)
CPT/HCPCS: 78815; A9552

== ENCOUNTER 2024-01-13 17:45 | Inpatient (IN) | payer MEDICARE, OTHER ==
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
[2024-01-13] MEDS: HYDROmorphone 1 MG/ML 1 ML SYRINGE IVP STA ×2 (18:56→21:04)
[2024-01-13 20:17] LABS: Basophils % (A) 0 %; Eosinophils # (A) 0.1 k/uL (0-0.7); Eosinophils % (A) 1 %; HCT 38.4 % (34.0-46.0); HGB 12.9 gm/dL (11.4-16.0); Lymphocytes # (A) 0.6 k/uL (1.0-4.8); Lymphocytes % (A) 6 %; MCH 31.4 pg (25.0-35.0); MCHC 33.6 g/dL (31.0-37.0); MCV 93.5 fL (80.0-100.0); Mean Platelet Volume 7.5; Monocytes # (A) 0.4 k/uL (0-1.0); Monocytes % (A) 4 %; Neutrophils # (A) 10.1 k/uL (1.3-7.7); Neutrophils % (A) 90 %; Platelet Count 227 k/uL (150-450); WBC 11.2 k/uL (3.8-10.6)
--- NOTE | 2024-01-13 20:23 | XR ---
EXAMINATION TYPE: XR humerus RT DATE OF EXAM: 01/13/2024 CLINICAL HISTORY: pain COMPARISON: NONE TECHNIQUE: Frontal and lateral images of the right humerus are obtained. FINDINGS: Completely displaced oblique fracture middle one third of the right humeral diaphysis displ acement of nearly 2 cm. Soft tissue swelling noted. There is angulation at the fracture site noted as well. No additional fractures are seen at this time. IMPRESSION: Humeral fracture as noted [facility], , 01/13/2024 8:20 PM
[2024-01-13 20:25] LABS: INR 1.2 (<1.2); Partial Thromboplastin Time 24.3 sec (22.0-30.0); Prothrombin Time 12.7 sec (10.0-12.5)
[2024-01-13 20:31] LABS: African American GFR (CKD) >90 (>60 ml/min/1.73 sqM); Anion Gap 4 mmol/L; Blood Urea Nitrogen 19 mg/dL (7-17); Calcium 8.8 mg/dL (8.4-10.2); Carbon Dioxide 27 mmol/L (22-30); Chloride 103 mmol/L (98-107); Glucose 216 mg/dL (74-99); Non-African American GFR(CKD) 80 (>60 ml/min/1.73 sqM); Sodium 134 mmol/L (137-145)
[2024-01-13] MEDS ORDERED: NALOXONE 0.4 MG/ML 1 ML VIAL IV PRN (21:03)
[2024-01-13] MEDS: SODIUM CHLORIDE 0.9% 1,000 ML IV SCH (21:09)
--- NOTE | 2024-01-13 21:17 | ED ---
Medical Decision Making - Lab Data Result diagrams: 01/13/24 19:49 01/13/24 19:49 Lab Results 01/13/24 01/13/24 01/13/24 Range/Units 19:49 19:49 19:49 WBC 11.2 H (3.8-10.6) k/uL RBC 4.10 (3.80-5.40) m/uL Hgb 12.9 (11.4-16.0) gm/dL Hct 38.4 (34.0-46.0) % MCV 93.5 (80.0-100.0) fL MCH 31.4 (25.0-35.0) pg MCHC 33.6 (31.0-37.0) g/dL RDW 14.0 (11.5-15.5) % Plt Count 227 (150-450) k/uL MPV 7.5 Neutrophils % 90 % Lymphocytes % 6 % Monocytes % 4 % Eosinophils % 1 % Basophils % 0 % Neutrophils # 10.1 H (1.3-7.7) k/uL Lymphocytes # 0.6 L (1.0-4.8) k/uL Monocytes # 0.4 (0-1.0) k/uL Eosinophils # 0.1 (0-0.7) k/uL Basophils # 0.0 (0-0.2) k/uL PT 12.7 H (10.0-12.5) sec INR 1.2 H (<1.2) APTT 24.3 (22.0-30.0) sec Sodium 134 L (137-145) mmol/L Potassium 4.0 (3.5-5.1) mmol/L Chloride 103 (98-107) mmol/L Carbon Dioxide 27 (22-30) mmol/L Anion Gap 4 mmol/L BUN 19 H (7-17) mg/dL Creatinine 0.76 (0.52-1.04) mg/dL Est GFR (CKD-EPI)AfAm >90 (>60 ml/min/1.73 sqM) Est GFR (CKD-EPI)NonAf 80 (>60 ml/min/1.73 sqM) Glucose 216 H (74-99) mg/dL Calcium 8.8 (8.4-10.2) mg/dL Disposition Clinical Impression: Humerus fracture, Gravely disabled Disposition: ADMITTED IP TO THIS [facility] Condition: Fair Procedures - Orthopedic Splinting/Casting Injury #1 Side: right Upper Extremity Injury Location: long arm (coapt splint)
[2024-01-13] MEDS: hydrALAZINE HCL 25 MG TAB PO STA (22:59)
[2024-01-13] MEDS: HYDROmorphone 1 MG/ML 1 ML SYRINGE IVP PRN (23:17)
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
[2024-01-13] MEDS ORDERED: cloNIDine HCL 0.2 MG TAB PO PRN (23:25)
--- NOTE | 2024-01-14 00:46 | XR ---
EXAM: XR Right Humerus, 2 or More Views CLINICAL HISTORY: ITS.REASON XR Reason: fx TECHNIQUE: Frontal and lateral views of the right humerus. COMPARISON: No relevant prior studies available. FINDINGS: Bones/joints: Displaced spiral fracture of the distal humeral diaphysis. Diffuse osseous demineralization. No dislocation. Soft tissues: Unremarkable. IMPRESSION: Displaced spiral fracture of the distal humeral diaphysis.
[2024-01-14] MEDS: LEVOTHYROXINE 112 MCG TAB PO SCH (06:00)
[2024-01-14] MEDS ORDERED: DEXTROSE 50% SYRINGE 50 ML IVP PRN ×2 (06:21)
[2024-01-14 07:07] LABS: Glucose,Whole Blood 119 mg/dL (70-110)
[2024-01-14] MEDS: INSULIN ASPART (NovoLOG) 100 UNIT/ML VIAL SQ SCH (07:18)
[2024-01-14] MEDS: carvediloL 6.25 MG TAB PO SCH (07:29)
[2024-01-14] MEDS: PANTOPRAZOLE 40 MG TABLET PO SCH (07:29)
[2024-01-14] MEDS: hydroCHLOROthiazide 12.5 MG CAP PO SCH (08:30)
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
[2024-01-14 11:19] LABS: HCT 40.3 % (37.2-50.0); HGB 13.8 g/dL (12.0-17.0); MCH 31.7 pg (27.0-32.0); MCHC 34.2 g/dL (32.0-37.0); MCV 92.6 FL (80.0-97.0); Mean Platelet Volume 9.8 FL (9.5-12.2); NRBC Per 100 WBC 0 X 10*3/uL (0.00-0.01); Platelet Count 294 X 10*3/uL (140-440); RBC 4.35 X 10*6/uL (4.10-5.60); RDW 14.7 % (11.5-14.5); WBC 13.61 X 10*3/uL (4.50-10.00)
[2024-01-14 11:39] LABS: BUN/Creat Ratio 21.58 Ratio (12.00-20.00); Blood Urea Nitrogen 25.9 mg/dL (9.0-27.0); Calcium 8.9 mg/dL (8.7-10.3); Carbon Dioxide 24.8 mmol/L (21.6-31.8); Chloride 102 mmol/L (96-109); Glucose 122 mg/dL (70-110); Potassium 4.3 mmol/L (3.5-5.5); Sodium 139 mmol/L (135-145)
[2024-01-14 11:53] LABS: Glucose,Whole Blood 127 mg/dL (70-110)
--- NOTE | 2024-01-14 17:11 | P.PN ---
Subjective Progress Note Date: 01/14/24 Patient is a 68-year-old female who presented to the ED after a mechanical fall. She mentions that she had to use an assist device (which she borrowed from a friend) to use as support while getting up from the toilet because of chronic pain in her back and abdomen. She has been using this device since a week but today while using the restroom, the device tipped over which is when she hit her right arm at the counter beside her. Her pain was on a 10 out of 10 severity. Currently she mentions that she is not able to move her right hand although she was able to move it before. Denies hitting her head but she is complaining of some lightheadedness right now although she states that it was not the reason for the fall. She also mentions about a rib fracture from coughing a few months ago. She also reports back pain as well as abdominal pain extremely tender to palpation which keeps on migrating. She states that she lives alone. Currently denies headache, fever, chills, chest pain, shortness of breath, coughing abdominal pain, nausea, vomiting. ED workup included humerus x-ray that shows oblique fracture at middle one third of the right humeral diaphysis with displacement of nearly 2 cm and soft tissue swelling. In the ED her right arm was put in a splint and Dilaudid given for pain. Vitals: T, 98 Fahrenheit, pulse 61 bpm, RR 18, BP 222/93, 99% on room air Labs: WBC 11.2, sodium 134 glucose 216 Coagulation panel: PT 12.7, INR 1.2 Progress note 4patient seen and examined at bedside. Continues to have pain in right arm, improving with pain management. Patient is to be evaluated and medically optimized for surgery. ED documentation reviewed. Review of systems: Pertinent positives and negatives as discussed in HPI, a complete review of systems was performed and all other systems are negative. Physical examination: Vital signs reviewed General: non toxic, no distress, appears at stated age, obese Derm: no unusual rashes/lesions, warm Head: atraumatic, normocephalic, symmetric Eyes: EOMI, anicteric sclera ENT: Nose and ears atraumatic Mouth: no lip lesion, mucus membranes moist Cardiovascular: S1S2 reg, no murmur, no edema, mild 1/6 aortic stenosis Lungs: CTA bilateral, no rhonchi, no rales, no accessory muscle use Abdominal: soft, nontender to palpation, no guarding Ext: RUE in a splint, RUE wrist drop with flexion 4/5 and extension 1/5, muscle strength 4 out of 5 in all LUE, LLE, RLE extremities grossly, no gross muscle atrophy, no contractures, Neuro: CN II-XI grossly intact, no gross focal neuro deficits Psych: Alert, oriented, appropriate affect Labs reviewed todayWBC 13.61, hemoglobin 13.8, platelet 294, sodium 139, potassium 4.3, chloride 102, bicarb 24.8, BUN 25.9, creatinine 1.2, glucose 122, proBNP 189 Assessment/Plan: Patient is a 68-year-old female who presented to the ED after a mechanical fall and admission accepted for right humerus fracture. #. Right humeral diaphysis fracture #. Preoperative Evaluation - Humerus x-ray shows oblique fracture at middle one third of the right humeral diaphysis and displacement of nearly 2 cm - Patient's arm is put in a splint C/W Dilaudid 1 mg IVP Q3HR as needed Orthopedic surgery following, will proceed with surgery tomorrow Patient is medically optimized at this time, recommend follow-up echocard iogram. proBNP 189 - Preoperative EKG pending NSQIP risk of coronary complication at 1%, however patient is medically optimized and can proceed #. Hypertensive urgency BP on admission 222/93, currently 159/79 S/p hydralazine 25 mg p.o. once stat in the ED Resume home meds hydrochlorothiazide 12.5 mg p.o. daily (hold day of surgery), carvedilol 6.25 mg p.o. daily Clonidine 0.2 mg p.o. every 8 hours as needed for SBP >180 #. Leukocytosis, likely reactive, no signs of active infection at this time Elevated WBC 11.2 Monitor CBC #. Mild hyponatremia Low sodium 134 Monitor BMP #. Hyperglycemia Elevated glucose 216 Insulin sliding scale and glucose monitoring ACHS -Pending A1c #. Nausea and vomiting C/W ondansetron 4 mg IV every 8 hours as needed #. Hypothyroidism C/W home med levothyroxine 112 mcg p.o. daily #. History of GERD C/W home med esomeprazole 3 mg p.o. daily F: 0.9 normal saline at 20 mL/h E: Replete as required N: Heart healthy diet A: Ambulatory DVT prophylaxis: SCD The patient is admitted with an anticipated less than 2 midnight stay for evaluation of right humerus fracture CODE STATUS: Full code Discussed with: Patient Anticipated discharge place: Home I saw and evaluated the patient during the farmer and critical portions of this encounter, and discussed the case in detail with the resident author of this note, I agree with the Assessment and Plan, and my changes, if any, are highlighted in blue. Objective - Vital Signs Vital signs: Vital Signs Temp 98.3 F 01/14/24 15:30 Pulse 58 L 01/14/24 15:30 Resp 16 01/14/24 15:30 BP 148/80 01/14/24 15:30 Pulse Ox 96 01/14/24 15:30 FiO2 Intake & Output 01/13/24 01/14/24 01/14/24 18:59 06:59 18:59 Weight 104.326 kg 104.326 kg Other: # Voids 1 - Labs CBC & Chem 7: 01/14/24 07:08 01/14/24 07:08 Labs: Abnormal Lab Results - Last 24 Hours (Table) 01/13/24 01/13/24 01/13/24 Range/Units 19:49 19:49 19:49 WBC 11.2 H (3.8-10.6) k/uL RDW (11.5-14.5) % Neutrophils # 10.1 H (1.3-7.7) k/uL Lymphocytes # 0.6 L (1.0-4.8) k/uL PT 12.7 H (10.0-12.5) sec INR 1.2 H (<1.2) Sodium 134 L (137-145) mmol/L Anion Gap (4.00-12.00) mmol/L BUN 19 H (7-17) mg/dL Est GFR (CKD-EPI) (>=60) BUN/Creatinine Ratio (12.00-20.00) Ratio Glucose 216 H (74-99) mg/dL POC Glucose (mg/dL) (70-110) mg/dL 01/14/24 01/14/24 01/14/24 Range/Units 07:06 07:08 07:08 WBC 13.61 H (3.8-10.6) k/uL RDW 14.7 H (11.5-14.5) % Neutrophils # (1.3-7.7) k/uL Lymphocytes # (1.0-4.8) k/uL PT (10.0-12.5) sec INR (<1.2) Sodium (137-145) mmol/L Anion Gap 12.20 H (4.00-12.00) mmol/L BUN (7-17) mg/dL Est GFR (CKD-EPI) 49 L (>=60) BUN/Creatinine Ratio 21.58 H (12.00-20.00) Ratio Glucose 122 H (74-99) mg/dL POC Glucose (mg/dL) 119 H (70-110) mg/dL 01/14/24 Range/Units 11:50 WBC (3.8-10.6) k/uL RDW (11.5-14.5) % Neutrophils # (1.3-7.7) k/uL Lymphocytes # (1.0-4.8) k/uL PT (10.0-12.5) sec INR (<1.2) Sodium (137-145) mmol/L Anion Gap (4.00-12.00) mmol/L BUN (7-17) mg/dL Est GFR (CKD-EPI) (>=60) BUN/Creatinine Ratio (12.00-20.00) Ratio Glucose (74-99) mg/dL POC Glucose (mg/dL) 127 H (70-110) mg/dL
--- NOTE | 2024-01-14 18:09 | CA ---
Transthoracic Echo Report Name: Camelia Rodriguez Age: 68 Gender: F : 1955 Exam Date: 01/14/2024 15:19 Exam Location: [facility] Ht (in): 67 Wt (lb): 230 Ordering Physician: Shahzad Carter MD Attending/Referring Phys: Condenser Tester Nirmala Curiel RDCS Procedure CPT: Indications: Pre-op/Aortic stenosis Cardiac Hx: Technical Quality: Fair Contrast 1: Total Dose (mL): Contrast 2: Total Dose (mL): MEASUREMENTS (Male / Female) Normal Values 2D ECHO LV Diastolic Diameter PLAX 2.3 cm 4.2 - 5.9 / 3.9 - 5.3 cm LV Systolic Diameter PLAX 1.5 cm IVS Diastolic Thickness 1.5 cm 0.6 - 1.0 / 0.6 - 0.9 cm LVPW Diastolic Thickness 1.3 cm 0.6 - 1.0 / 0.6 - 0.9 cm LV Relative Wall Thickness 1.2 RV Internal Dim ED PLAX 2.2 cm LVOT Diameter 2.1 cm LA Volume 50.8 cm??? 18 - 58 / 22 - 52 cm??? LA Volume Index 22.5 cm???/m??? 16 - 28 cm???/m??? M-MODE Aortic Root Diameter MM 3.4 cm LA Systolic Diameter MM 4.8 cm LA Ao Ratio MM 1.4 AV Cusp Separation MM 1.8 cm DOPPLER AV Peak Velocity 129.4 cm/s AV Peak Gradient 6.7 mmHg AV Mean Velocity 85.9 cm/s AV Mean Gradient 3.4 mmHg AV Velocity Time Integral 28.8 cm LVOT Peak Velocity 130.9 cm/s LVOT Peak Gradient 6.8 mmHg LVOT Velocity Time Integral 30.1 cm LVOT Stroke Volume 104.1 cm??? LVOT Stroke Volume Index 48.5 ml/m??? LVOT Cardiac Index 2714.1 cm???/min???m??? AV Area Cont Eq vti 3.6 cm??? AV Area Cont Eq pk 3.5 cm??? MV Area PHT 2.1 cm??? Mitral E Point Velocity 55.9 cm/s Mitral A Point Velocity 101.1 cm/s Mitral E to A Ratio 0.6 MV Deceleration Time 357.8 ms MV E' Velocity 3.0 cm/s Mitral E to MV E' Ratio 18.9 TR Peak Velocity 184.9 cm/s TR Peak Gradient 13.7 mmHg Right Ventricular Systolic Press 18.7 mmHg FINDINGS Left Ventricle Moderately increased septal wall thickness. Mildly increased posterior wall thickness. Left ventricular cavity size normal. Normal left ventricular systolic function with no obvious regional wall motion abnormalities. Left ventricular ejection fraction is estimated at 55-60 %. Grade 1 diastolic dysfunction. Right Ventricle Normal right ventricular size and function. Right ventricular systolic pressure within normal limits. Right Atrium Normal right atrial size. Left Atrium Normal left atrial size. Mitral Valve Structurally normal mitral valve. No mitral stenosis. Mitral valve thickened. Mild mitral annular calcification. Trace mitral regurgitation. Aortic Valve Trileaflet aortic valve. No aortic valve stenosis or regurgitation. Aortic valve sclerosis. Tricuspid Valve Structurally normal tricuspid valve. Mild tricuspid regurgitation. Pulmonic Valve Structurally normal pulmonic valve. Pericardium No pericardial effusion. Aorta Normal size aortic root and proximal ascending aorta. CONCLUSIONS LVEF 55% Grade Balestra dysfunction No obvious regional wall motion abnormality Moderate concentric LVH Normal RV size and systolic function No significant valve dysfunction Previewed by: Dr Timbo Gamble (Electronically Signed) Final Date: 14 January 2024 18:08
[2024-01-14 20:12] LABS: Glucose,Whole Blood 126 mg/dL (70-110)
[2024-01-15 05:45] LABS: Glucose,Whole Blood 112 mg/dL (70-110)
[2024-01-15] MEDS ORDERED: LIDOCAINE 1% INJ 10MG/ML (20 ML MDV) ONE (08:00)
[2024-01-15] MEDS ORDERED: ePHEDrine 50 MG/ML 1 ML VIAL ONE (08:00)
[2024-01-15] MEDS ORDERED: SUCCINYLCHOLINE CHLORIDE 200 MG/10 ML VIAL IV ONE (08:00)
[2024-01-15] MEDS ORDERED: GLYCOPYRROLATE 0.2 MG/ML 2 ML VIAL ONE (08:00)
[2024-01-15] MEDS ORDERED: LIDOCAINE 4% LTA KIT (4 ML) TOPICAL ONE (08:00)
[2024-01-15] MEDS ORDERED: PROPOFOL 10 MG/ML 20 ML VIAL IV ONE (08:00)
[2024-01-15] MEDS ORDERED: PHENYLEPHRINE 10 MG/ML VIAL ONE (08:00)
[2024-01-15] MEDS ORDERED: ROCURONIUM 10 MG/ML (5 ML VIAL) IV ONE (08:00)
[2024-01-15] MEDS ORDERED: NEOSTIGMINE 1 MG/ML 10 ML VIAL ONE (08:00)
[2024-01-15] MEDS ORDERED: fentaNYL (PF) 50 MCG/ML 2 ML AMP ONE (08:00)
[2024-01-15] MEDS: IV FLUID CONTINUATION 1,000 ML IV ONE (08:04)
[2024-01-15] MEDS: SODIUM CHLORIDE 0.9% 100 ML with ceFAZolin 2,000 MG IV ONE (08:04)
[2024-01-15] MEDS: LACTATED RINGERS 1,000 ML IV ONE (09:18)
[2024-01-15 10:02] LABS: BUN/Creat Ratio 23.67 Ratio (12.00-20.00); Blood Urea Nitrogen 35.5 mg/dL (9.0-27.0); Calcium 8.2 mg/dL (8.7-10.3); Carbon Dioxide 24.3 mmol/L (21.6-31.8); Chloride 101 mmol/L (96-109); Glucose 103 mg/dL (70-110); Potassium 3.7 mmol/L (3.5-5.5); Sodium 137 mmol/L (135-145)
[2024-01-15] MEDS ORDERED: HYDROmorphone 0.5 MG/0.5 ML SYRINGE IVP PRN ×2 (10:09→11:17)
[2024-01-15] MEDS ORDERED: HYDROcodone/APAP 5-325MG 1 EACH TAB PO PRN ×2 (10:09)
--- NOTE | 2024-01-15 10:11 | XR ---
Fluoroscopy INDICATION: Pain FINDINGS: Fluoroscopy time: 2 minutes 43.5 seconds. Total dose area product (DAP) in uGy*m?, mGy*cm? (or similar): 2.7080 Images obtained: 6. IMPRESSION: 1. Documentation of fluoroscopy. [facility], Workstation: [facility], 01/15/2024 10:09 AM
--- NOTE | 2024-01-15 10:15 | P.OP ---
Date of Procedure: 01/15/24 Preoperative Diagnosis: Displaced right distal spiral humeral shaft fracture Postoperative Diagnosis: Same Procedure(s) Performed: Intramedullary nailing right humeral shaft fracture Implants: [place] 8 mm x 280 mm humeral nail Anesthesia: YESSI Surgeon: Marcio Noyola [employer] Manager #1: Juventino Stanley Estimated Blood Loss (ml): 30 Pathology: none sent Condition: stable Disposition: PACU Indications for Procedure: The patient is a 68-year-old morbidly obese female who presents with a closed displaced right distal spiral humeral shaft fracture after a recent fall. A discussion of the risks and benefits of operative intervention versus attempted conservative measures was made with the patient. She opted to proceed with surgery. Operative risks include infection, neurovascular injury, development of blood clots, possible development of nonunion/malunion, possible hardware failure, and possible need for subsequent procedures was discussed. Informed consent was obtained. Operative Findings: As below Description of Procedure: The patient was brought to the operating room, and after induction of general anesthesia was placed in a beachchair position. The bony prominences were appropriately padded. The right upper extremity was prepped and draped in normal fashion. A 3 cm incision was then made off the anterolateral aspect of the acromion. Skin was incised sharply. Deltoid muscle was bluntly dissected down to the subacromial space. A self-retaining retractor was placed. The supraspinatus was identified. This was split and the edges were tagged with #1 Vicryl suture. A starting hole was made in the proximal humerus with a starting awl with the aid of fluoroscopy. A ball-tipped guidewire was then inserted down the humeral shaft. Again this was done with the aid of fluoroscopy. As she had a radial nerve palsy preoperatively, I did not ream at the fracture site. Distally I reamed up to 9.5 mm. A smooth guidewire was then inserted and the ball-tipped guidewire removed. An 8 x 280 mm humeral nail was then gently inserted. This reduced the fracture into reasonable alignment on the AP and lateral views. Proximally 4.0 mm cortical screws of the appropriate length were inserted with the aid of fluoroscopy. Care was taken not to violate the glenohumeral joint. The distal anterior to posterior locking screw was placed utilizing freehand technique/perfect [place]. Blunt dissection was made on the anterior aspect of the elbow down to the cortical bone. A 4.0 mm cancellous screw the appropriate length was inserted. Good purchase was obtained. Final fluoroscopic views of the fracture site showed adequate reduction of this significantly displaced spiral distal humeral shaft fracture. The wounds were irrigated with normal saline. The subcutaneous tissues reapproximated interrupted 2-0 Vicryl sutures. The rotator cuff was repaired in a [id number] fashion with #1 Vicryl suture. The skin was reapproximated with 4-0 simple nylon sutures. A sterile dressing was applied in addition to a sling. The patient was awoken from general anesthesia and transferred to the recovery room in good condition. Blood loss is estimated 30 cc. No complications were incurred. Sponge and needle counts were correct at the end of the case. SHANNAN Carney assisted during the major components of the case to include positioning, reduction, implantation, and closure.
[2024-01-15] MEDS: HYDROmorphone 0.5 MG/0.5 ML SYRINGE IVP PRN (10:23)
[2024-01-15 10:45] LABS: Glucose,Whole Blood 116 mg/dL (70-110)
--- NOTE | 2024-01-15 10:45 | FL ---
Fluoroscopy INDICATION: Pain FINDINGS: Fluoroscopy time: 2 minutes 43 seconds. Total dose area product (DAP) in uGy*m?, mGy*cm? (or similar): 2.7080 Images obtained: 0. IMPRESSION: 1. Documentation of fluoroscopy. [facility], Workstation: [facility], 01/15/2024 10:42 AM
[2024-01-15] MEDS ORDERED: METOCLOPRAMIDE 5 MG/ML 2 ML VIAL IVP PRN (11:17)
[2024-01-15] MEDS ORDERED: LIDOCAINE 1% (10MG/ML) FOR IV START INTRADERMA PRN (11:17)
[2024-01-15 11:19] LABS: Glucose,Whole Blood 127 mg/dL (70-110)
[2024-01-15 11:31] LABS: Basophils % (A) 0 %; Eosinophils # (A) 0.1 k/uL (0-0.7); Eosinophils % (A) 2 %; HCT 34.4 % (34.0-46.0); HGB 11.6 gm/dL (11.4-16.0); Lymphocytes # (A) 0.7 k/uL (1.0-4.8); Lymphocytes % (A) 8 %; MCH 32.3 pg (25.0-35.0); MCHC 33.8 g/dL (31.0-37.0); MCV 95.4 fL (80.0-100.0); Mean Platelet Volume 7.1; Monocytes # (A) 0.8 k/uL (0-1.0); Monocytes % (A) 9 %; Neutrophils # (A) 6.6 k/uL (1.3-7.7); Neutrophils % (A) 79 %; Platelet Count 146 k/uL (150-450); RBC 3.61 m/uL (3.80-5.40); RDW 14.3 % (11.5-15.5); WBC 8.4 k/uL (3.8-10.6)
[2024-01-15] MEDS: DEXAMETHASONE SOD PHOSPHATE 4 MG/ML 1 ML VIAL IV ONE (11:39)
[2024-01-15] MEDS: LACTATED RINGERS 1,000 ML IV SCH (11:39)
[2024-01-15] MEDS: ONDANSETRON 4 MG/2 ML VIAL IVP ONE (11:40)
[2024-01-15 11:56] LABS: HCT 36.5 % (37.2-50.0); HGB 12.6 g/dL (12.0-17.0); MCH 32.2 pg (27.0-32.0); MCHC 34.5 g/dL (32.0-37.0); MCV 93.4 FL (80.0-97.0); Mean Platelet Volume 10.4 FL (9.5-12.2); NRBC Per 100 WBC 0 X 10*3/uL (0.00-0.01); Platelet Count 182 X 10*3/uL (140-440); RBC 3.91 X 10*6/uL (4.10-5.60); RBC Morphology Normal (Normal); RDW 14.6 % (11.5-14.5); WBC 9.22 X 10*3/uL (4.50-10.00)
--- NOTE | 2024-01-15 12:14 | XR ---
EXAMINATION TYPE: XR humerus RT DATE OF EXAM: 01/15/2024 COMPARISON: 01/13/2024 HISTORY: Fracture TECHNIQUE: AP right humerus FINDINGS: There is a medullary fredrick fixation through a distal diaphyseal right humeral fracture. No ne w fractures are evident. IMPRESSION: 1. Status post fixation distal diaphyseal right humeral fracture [facility], Workstation: [facility], 01/15/2024 12:12 PM
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
[2024-01-15] MEDS: ONDANSETRON 4 MG/2 ML VIAL IVP PRN (13:34)
[2024-01-15 14:16] LABS: Appearance,Urine Clear (Clear); Bilirubin,Urine Negative (Negative); Blood,Urine Negative (Negative); Color,Urine Colorless; Glucose,Urine (UA) Negative (Negative); Ketones,Urine Negative (Negative); Leukocyte Esterase,Urine Negative (Negative); Nitrite,Urine Negative (Negative); Protein,Urine Negative (Negative); Specific Gravity,Urine 1.012 (1.001-1.035); Urobilinogen,Urine <2.0 mg/dL (<2.0)
[2024-01-15 16:13] LABS: Glucose,Whole Blood 108 mg/dL (70-110)
--- NOTE | 2024-01-15 17:41 | P.PN ---
Subjective Progress Note Date: 01/15/24 Patient is a 68-year-old female who presented to the ED after a mechanical fall. She mentions that she had to use an assist device (which she borrowed from a friend) to use as support while getting up from the toilet because of chronic pain in her back and abdomen. She has been using this device since a week but today while using the restroom, the device tipped over which is when she hit her right arm at the counter beside her. Her pain was on a 10 out of 10 severity. Currently she mentions that she is not able to move her right hand although she was able to move it before. Denies hitting her head but she is complaining of some lightheadedness right now although she states that it was not the reason for the fall. She also mentions about a rib fracture from coughing a few months ago. She also reports back pain as well as abdominal pain extremely tender to palpation which keeps on migrating. She states that she lives alone. Currently denies headache, fever, chills, chest pain, shortness of breath, coughing abdominal pain, nausea, vomiting. ED workup included humerus x-ray that shows oblique fracture at middle one third of the right humeral diaphysis with displacement of nearly 2 cm and soft tissue swelling. In the ED her right arm was put in a splint and Dilaudid given for pain. Vitals: T, 98 Fahrenheit, pulse 61 bpm, RR 18, BP 222/93, 99% on room air Labs: WBC 11.2, sodium 134 glucose 216 Coagulation panel: PT 12.7, INR 1.2 Progress note 01/15/2024 patient seen and examined at bedside status post intramedullary nailing of right humeral shaft fracture. No complications noted. Continues to have pain in right arm, improving with pain management. Review of systems: Pertinent positives and negatives as discussed in HPI, a complete review of systems was performed and all other systems are negative. Physical examination: Vital signs reviewed General: non toxic, no distress, appears at stated age, obese Derm: no unusual rashes/lesions, warm Head: atraumatic, normocephalic, symmetric Eyes: EOMI, anicteric sclera ENT: Nose and ears atraumatic Mouth: no lip lesion, mucus membranes moist Cardiovascular: S1S2 reg, no murmur, no edema, mild 1/6 aortic stenosis Lungs: CTA bilateral, no rhonchi, no rales, no accessory muscle use Abdominal: soft, nontender to palpation, no guarding Ext: RUE in a splint, RUE wrist drop with flexion 4/5 and extension 1/5, muscle strength 4 out of 5 in all LUE, LLE, RLE extremities grossly, no gross muscle atrophy, no contractures, Neuro: CN II-XI grossly intact, no gross focal neuro deficits Psych: Alert, oriented, appropriate affect Labs reviewed todayWBC 8.4, hemoglobin 11.4, platelets 146, sodium 137, potassium 3.7, chloride 101, bicarb 24.3, BUN 35.5, creatinine 1.5, UA unremarkable Imaging reviewed todayechocardiogram LVEF 55%, renal ultrasound unremarkable Assessment/Plan: Patient is a 68-year-old female who presented to the ED after a mechanical fall and admission accepted for right humerus fracture. #. Right humeral diaphysis fracture #. Preoperative Evaluation # Status post intramedullary nailing of the right humeral shaft fracture - Humerus x-ray shows oblique fracture at middle one third of the right humeral diaphysis and displacement of nearly 2 cm - Patient's arm is put in a splint C/W Dilaudid 1 mg IVP Q3HR as needed Orthopedic surgery following, will proceed with surgery tomorrow Echocardiogram with LVEF 55%. proBNP 189 NSQIP risk of MACE (Major Adverse Cardiac Event) at 1% Procedure tolerated well with no complications #Perioperative FELIPE BUN 35.5, initial creatinine 0.76 => 1.5 UA unremarkable Renal ultrasound unremarkable Urine nitrate negative Pending urine creatinine Continue IV NS at 20 cc/h #. Hypertensive urgency BP on admission 222/93, currently 143/69 S/p hydralazine 25 mg p.o. once stat in the ED Resume home meds hydrochlorothiazide 12.5 mg p.o. daily (hold day of surgery), carvedilol 6.25 mg p.o. daily Clonidine 0.2 mg p.o. every 8 hours as needed for SBP >180 Continue monitor #. Leukocytosis, likely reactive, no signs of active infection at this time, resolved Elevated WBC 11.2 => 8.4, Monitor CBC #. Mild hyponatremia, resolved Low sodium 134 => 139 => 137 Monitor BMP #. Hyperglycemia Elevated glucose 216 Insulin sliding scale and glucose monitoring ACHS - HbA1c 6.4% #. Nausea and vomiting C/W ondansetron 4 mg IV every 8 hours as needed #. Hypothyroidism C/W home med levothyroxine 112 mcg p.o. daily #. History of GERD C/W home med esomeprazole 3 mg p.o. daily F: 0.9 normal saline at 20 mL/h E: Replete as required N: Heart healthy diet A: Ambulatory DVT prophylaxis: SCD The patient is admitted with an anticipated less than 2 midnight stay for evaluation of right humerus fracture CODE STATUS: Full code Discussed with: Patient Anticipated discharge place: Home I saw and evaluated the patient during the farmer and critical portions of this encounter, and discussed the case in detail with the resident author of this note, I agree with the Assessment and Plan, and my changes, if any, are highlighted in blue. Objective - Vital Signs Vital signs: Vital Signs Temp 98.4 F 01/15/24 13:13 Pulse 74 01/15/24 13:13 Resp 17 01/15/24 13:13 BP 143/69 01/15/24 13:13 Pulse Ox 96 01/15/24 13:13 FiO2 Intake & Output 01/14/24 01/15/24 01/15/24 18:59 06:59 18:59 Intake Total 1300 Output Total 300 30 Balance -300 1270 Weight 104.326 kg 104.326 kg Intake: IV 1300 Output: Urine 300 Estimated Blood Loss 30 Other: Voiding Method External Catheter External Catheter # Voids 1 - Labs CBC & Chem 7: 01/15/24 11:10 01/15/24 05:29 Labs: Abnormal Lab Results - Last 24 Hours (Table) 01/14/24 01/15/24 01/15/24 Range/Units 20:10 05:29 05:29 RBC 3.91 L (4.10-5.60) X 10*6/uL Hct 36.5 L (37.2-50.0) % MCH 32.2 H (27.0-32.0) pg RDW 14.6 H (11.5-14.5) % Plt Count (150-450) k/uL Lymphocytes # (1.0-4.8) k/uL BUN (9.0-27.0) mg/dL Est GFR (CKD-EPI) (>=60) BUN/Creatinine Ratio (12.00-20.00) Ratio POC Glucose (mg/dL) 126 H (70-110) mg/dL Hemoglobin A1c 6.4 H (<=6.0) % Calcium (8.7-10.3) mg/dL 01/15/24 01/15/24 01/15/24 Range/Units 05:29 05:42 10:31 RBC (4.10-5.60) X 10*6/uL Hct (37.2-50.0) % MCH (27.0-32.0) pg RDW (11.5-14.5) % Plt Count (150-450) k/uL Lymphocytes # (1.0-4.8) k/uL BUN 35.5 H (9.0-27.0) mg/dL Est GFR (CKD-EPI) 37 L (>=60) BUN/Creatinine Ratio 23.67 H (12.00-20.00) Ratio POC Glucose (mg/dL) 112 H 116 H (70-110) mg/dL Hemoglobin A1c (<=6.0) % Calcium 8.2 L (8.7-10.3) mg/dL 01/15/24 01/15/24 Range/Units 11:10 11:17 RBC 3.61 L (4.10-5.60) X 10*6/uL Hct (37.2-50.0) % MCH (27.0-32.0) pg RDW (11.5-14.5) % Plt Count 146 L (150-450) k/uL Lymphocytes # 0.7 L (1.0-4.8) k/uL BUN (9.0-27.0) mg/dL Est GFR (CKD-EPI) (>=60) BUN/Creatinine Ratio (12.00-20.00) Ratio POC Glucose (mg/dL) 127 H (70-110) mg/dL Hemoglobin A1c (<=6.0) % Calcium (8.7-10.3) mg/dL
[2024-01-15 21:18] LABS: Glucose,Whole Blood 112 mg/dL (70-110)
[2024-01-16 06:42] LABS: Glucose,Whole Blood 103 mg/dL (70-110)
[2024-01-16 09:14] LABS: HCT 34.2 % (37.2-50.0); HGB 11.6 g/dL (12.0-17.0); MCH 32.2 pg (27.0-32.0); MCHC 33.9 g/dL (32.0-37.0); Mean Platelet Volume 10.7 FL (9.5-12.2); NRBC Per 100 WBC 0 X 10*3/uL (0.00-0.01); Platelet Count 149 X 10*3/uL (140-440); RDW 14.5 % (11.5-14.5); WBC 7.68 X 10*3/uL (4.50-10.00)
--- NOTE | 2024-01-16 09:51 | P.PN ---
Subjective Progress Note Date: 01/16/24 Principal diagnosis: Displaced right distal spiral humeral shaft fracture; radial nerve palsy Patient was seen at bedside this morning on 4 S. laying in the semirecumbent position with sling present to right upper extremity and dressing present over right shoulder and elbow. Patient states she has not been out of bed since surgery yesterday. She says she is having a lot of pain to the right elbow and upper arm at this time. She says the right forearm and the backside of her right hand is numb. Patient denies any other issues at this time. Objective - Vital Signs Vital signs: Vital Signs Temp 97.9 F 01/16/24 08:12 Pulse 80 01/16/24 08:12 Resp 16 01/16/24 08:12 BP 138/78 01/16/24 08:12 Pulse Ox 94 L 01/16/24 08:12 FiO2 Intake & Output 01/15/24 01/16/24 01/16/24 18:59 06:59 18:59 Intake Total 1300 Output Total 30 425 Balance 1270 -425 Weight 104.326 kg Intake: IV 1300 Output: Urine 425 Estimated Blood Loss 30 Other: Voiding Method External Catheter External Catheter External Catheter # Voids 4 - Exam Sling present to right upper extremity. Dressings clean dry and intact over the right shoulder and elbow. She is nontender about the right anterior shoulder. She is tender about the right mid humerus and elbow. She is nontender over the right wrist. She does have significant right wrist extensor and finger extensor weakness along with decreased sensation over the dorsal radial aspect of the right hand. Patient does have full passive range of motion of the right wrist in flexion/extension and right elbow in flexion extension. Patient unable to actively flex and extend right wrist 2+ distal radial pulses noted. Negative Homans bilaterally. - Labs CBC & Chem 7: 01/16/24 02:26 01/15/24 05:29 Labs: Abnormal Lab Results - Last 24 Hours (Table) 01/15/24 01/15/24 01/15/24 Range/Units 05:29 05:29 05:29 RBC 3.91 L (4.10-5.60) X 10*6/uL Hgb (12.0-17.0) g/dL Hct 36.5 L (37.2-50.0) % MCH 32.2 H (27.0-32.0) pg RDW 14.6 H (11.5-14.5) % Plt Count (150-450) k/uL Lymphocytes # (1.0-4.8) k/uL BUN 35.5 H (9.0-27.0) mg/dL Est GFR (CKD-EPI) 37 L (>=60) BUN/Creatinine Ratio 23.67 H (12.00-20.00) Ratio POC Glucose (mg/dL) (70-110) mg/dL Hemoglobin A1c 6.4 H (<=6.0) % Calcium 8.2 L (8.7-10.3) mg/dL 01/15/24 01/15/24 01/15/24 Range/Units 10:31 11:10 11:17 RBC 3.61 L (4.10-5.60) X 10*6/uL Hgb (12.0-17.0) g/dL Hct (37.2-50.0) % MCH (27.0-32.0) pg RDW (11.5-14.5) % Plt Count 146 L (150-450) k/uL Lymphocytes # 0.7 L (1.0-4.8) k/uL BUN (9.0-27.0) mg/dL Est GFR (CKD-EPI) (>=60) BUN/Creatinine Ratio (12.00-20.00) Ratio POC Glucose (mg/dL) 116 H 127 H (70-110) mg/dL Hemoglobin A1c (<=6.0) % Calcium (8.7-10.3) mg/dL 01/15/24 01/16/24 Range/Units 21:16 02:26 RBC 3.60 L (4.10-5.60) X 10*6/uL Hgb 11.6 L (12.0-17.0) g/dL Hct 34.2 L (37.2-50.0) % MCH 32.2 H (27.0-32.0) pg RDW (11.5-14.5) % Plt Count (150-450) k/uL Lymphocytes # (1.0-4.8) k/uL BUN (9.0-27.0) mg/dL Est GFR (CKD-EPI) (>=60) BUN/Creatinine Ratio (12.00-20.00) Ratio POC Glucose (mg/dL) 112 H (70-110) mg/dL Hemoglobin A1c (<=6.0) % Calcium (8.7-10.3) mg/dL Assessment and Plan Assessment: 1. right distal spiral humeral shaft fracture; radial nerve palsy -Postop day 1 status post Intramedullary nailing right humeral shaft fracture Plan: 1. right distal spiral humeral shaft fracture; radial nerve palsy -surgery performed yesterday, Wednesday, 4right humeral IM nail. Patient stable at bedside this morning with sling to right upper extremity and dressing present over right shoulder and elbow. Patient does have radial nerve palsy. Prescription for radial nerve palsy splint placed in chart. Case management working on this. Pain medication as needed. Patient is encouraged to perform gentle range of motion exercises of the right elbow and right wrist/hand while resting in bed. Rolled up towel was placed under right hand to keep wrist hand and fingers in extension. Apply ice as needed to the shoulder and elbow. Case management working on rehab placement. We will continue to follow patient during stay in hospital. 2. Pain appreciate medical management 3. Pain management -Percocet 5 mg / 325 mg 4. DVT prophylaxis aspirin- 325 mg daily 5. GI prophylaxis -senna; Protonix 6. PT/OT -nonweightbearing right upper extremity; maintain sling to right upper extremity; weightbearing as tolerated bilateral lower extremities and left upper extremity. Patient is encouraged to perform gentle range of motion exercises of the right elbow and right wrist/hand while resting in bed. 7. Encourage incentive spirometer use Time with Patient: Less than 30
[2024-01-16 10:11] LABS: BUN/Creat Ratio 24.17 Ratio (12.00-20.00); Calcium 7.6 mg/dL (8.7-10.3); Carbon Dioxide 24.9 mmol/L (21.6-31.8); Chloride 101 mmol/L (96-109); Glucose 97 mg/dL (70-110); Potassium 3.6 mmol/L (3.5-5.5); Sodium 135 mmol/L (135-145)
--- NOTE | 2024-01-16 10:28 | P.PN ---
Subjective Progress Note Date: 01/16/24 Patient is a 68-year-old female who presented to the ED after a mechanical fall. She mentions that she had to use an assist device (which she borrowed from a friend) to use as support while getting up from the toilet because of chronic pain in her back and abdomen. She has been using this device since a week but today while using the restroom, the device tipped over which is when she hit her right arm at the counter beside her. Her pain was on a 10 out of 10 severity. Currently she mentions that she is not able to move her right hand although she was able to move it before. Denies hitting her head but she is complaining of some lightheadedness right now although she states that it was not the reason for the fall. She also mentions about a rib fracture from coughing a few months ago. She also reports back pain as well as abdominal pain extremely tender to palpation which keeps on migrating. She states that she lives alone. Currently denies headache, fever, chills, chest pain, shortness of breath, coughing abdominal pain, nausea, vomiting. ED workup included humerus x-ray that shows oblique fracture at middle one third of the right humeral diaphysis with displacement of nearly 2 cm and soft tissue swelling. In the ED her right arm was put in a splint and Dilaudid given for pain. Vitals: T, 98 Fahrenheit, pulse 61 bpm, RR 18, BP 222/93, 99% on room air Labs: WBC 11.2, sodium 134 glucose 216 Coagulation panel: PT 12.7, INR 1.2 Progress note 01/16/2024 patient seen and examined at bedside. Patient has ongoing pain to the right upper extremity, decently controlled with medication regimen. Review of systems: Pertinent positives and negatives as discussed in HPI, a complete review of systems was performed and all other systems are negative. Physical examination: Vital signs reviewed General: non toxic, no distress, appears at stated age, obese Derm: no unusual rashes/lesions, warm Head: atraumatic, normocephalic, symmetric Eyes: EOMI, anicteric sclera ENT: Nose and ears atraumatic Mouth: no lip lesion, mucus membranes moist Cardiovascular: S1S2 reg, no murmur, no edema, mild 1/6 aortic stenosis Lungs: CTA bilateral, no rhonchi, no rales, no accessory muscle use Abdominal: soft, nontender to palpation, no guarding Ext: RUE in a splint, RUE wrist drop with flexion 4/5 and extension 1/5, muscle strength 4 out of 5 in all LUE, LLE, RLE extremities grossly, no gross muscle atrophy, no contractures, Neuro: CN II-XI grossly intact, no gross focal neuro deficits Psych: Alert, oriented, appropriate affect Labs reviewed todayWBC 8.4, hemoglobin 11.4, platelets 146, sodium 137, potassium 3.7, chloride 101, bicarb 24.3, BUN 35.5, creatinine 1.5, UA unremarkable Imaging reviewed todayechocardiogram LVEF 55%, renal ultrasound unremarkable Assessment/Plan: Patient is a 68-year-old female who presented to the ED after a mechanical fall and admission accepted for right humerus fracture. #. Right humeral diaphysis fracture #. Preoperative Evaluation # Status post intramedullary nailing of the right humeral shaft fracture - Humerus x-ray shows oblique fracture at middle one third of the right humeral diaphysis and displacement of nearly 2 cm - Patient's arm is put in a splint C/W Dilaudid 1 mg IVP Q3HR as needed Orthopedic surgery following, will proceed with surgery tomorrow Echocardiogram with LVEF 55%. proBNP 189 NSQIP risk of MACE (Major Adverse Cardiac Event) at 1% Procedure tolerated well with no complications #Perioperative FELIPE BUN 35.5, initial creatinine 0.76 => 1.5 -> 1.2 UA unremarkable Renal ultrasound unremarkable Urine nitrate negative Pending urine creatinine Continue IV NS at 20 cc/h #. Hypertensive urgency BP on admission 222/93, currently 143/69 S/p hydralazine 25 mg p.o. once stat in the ED Resume home meds hydrochlorothiazide 12.5 mg p.o. daily (hold day of surgery), carvedilol 6.25 mg p.o. daily Clonidine 0.2 mg p.o. every 8 hours as needed for SBP >180 Continue monitor #. Leukocytosis, likely reactive, no signs of active infection at this time, resolved Elevated WBC 11.2 => 8.4, Monitor CBC #. Mild hyponatremia, resolved Low sodium 134 => 139 => 137 Monitor BMP #. Hyperglycemia Elevated glucose 216 Insulin sliding scale and glucose monitoring ACHS - HbA1c 6.4% #. Nausea and vomiting C/W ondansetron 4 mg IV every 8 hours as needed #. Hypothyroidism C/W home med levothyroxine 112 mcg p.o. daily #. History of GERD C/W home med esomeprazole 3 mg p.o. daily F: 0.9 normal saline at 20 mL/h E: Replete as required N: Heart healthy diet A: Ambulatory DVT prophylaxis: SCD The patient is admitted with an anticipated less than 2 midnight stay for evaluation of right humerus fracture CODE STATUS: Full code Discussed with: Patient Anticipated discharge place: Home Objective - Vital Signs Vital signs: Vital Signs Temp 97.9 F 01/16/24 08:12 Pulse 80 01/16/24 08:12 Resp 16 01/16/24 08:12 BP 138/78 01/16/24 08:12 Pulse Ox 94 L 01/16/24 08:12 FiO2 Intake & Output 01/15/24 01/16/24 01/16/24 18:59 06:59 18:59 Intake Total 1300 Output Total 30 425 Balance 1270 -425 Weight 104.326 kg Intake: IV 1300 Output: Urine 425 Estimated Blood Loss 30 Other: Voiding Method External Catheter External Catheter External Catheter # Voids 4 - Labs CBC & Chem 7: 01/16/24 02:26 01/16/24 02:26 Labs: Abnormal Lab Results - Last 24 Hours (Table) 01/15/24 01/15/24 01/15/24 Range/Units 05:29 10:31 11:10 RBC 3.91 L 3.61 L (4.10-5.60) X 10*6/uL Hgb (12.0-17.0) g/dL Hct 36.5 L (37.2-50.0) % MCH 32.2 H (27.0-32.0) pg RDW 14.6 H (11.5-14.5) % Plt Count 146 L (150-450) k/uL Lymphocytes # 0.7 L (1.0-4.8) k/uL BUN (9.0-27.0) mg/dL Est GFR (CKD-EPI) (>=60) BUN/Creatinine Ratio (12.00-20.00) Ratio POC Glucose (mg/dL) 116 H (70-110) mg/dL Calcium (8.7-10.3) mg/dL 01/15/24 01/15/24 01/16/24 Range/Units 11:17 21:16 02:26 RBC 3.60 L (4.10-5.60) X 10*6/uL Hgb 11.6 L (12.0-17.0) g/dL Hct 34.2 L (37.2-50.0) % MCH 32.2 H (27.0-32.0) pg RDW (11.5-14.5) % Plt Count (150-450) k/uL Lymphocytes # (1.0-4.8) k/uL BUN (9.0-27.0) mg/dL Est GFR (CKD-EPI) (>=60) BUN/Creatinine Ratio (12.00-20.00) Ratio POC Glucose (mg/dL) 127 H 112 H (70-110) mg/dL Calcium (8.7-10.3) mg/dL 01/16/24 Range/Units 02:26 RBC (4.10-5.60) X 10*6/uL Hgb (12.0-17.0) g/dL Hct (37.2-50.0) % MCH (27.0-32.0) pg RDW (11.5-14.5) % Plt Count (150-450) k/uL Lymphocytes # (1.0-4.8) k/uL BUN 29.0 H (9.0-27.0) mg/dL Est GFR (CKD-EPI) 49 L (>=60) BUN/Creatinine Ratio 24.17 H (12.00-20.00) Ratio POC Glucose (mg/dL) (70-110) mg/dL Calcium 7.6 L (8.7-10.3) mg/dL
[2024-01-16 11:00] LABS: Glucose,Whole Blood 118 mg/dL (70-110)
[2024-01-16] MEDS: ASPIRIN 325 MG TAB PO SCH (11:35)
[2024-01-16] MEDS: oxyCODONE-APAP 5-325MG 1 EACH TAB PO PRN (11:35)
[2024-01-16 16:22] LABS: Glucose,Whole Blood 141 mg/dL (70-110)
[2024-01-16 19:28] LABS: Glucose,Whole Blood 148 mg/dL (70-110)
[2024-01-16] MEDS: SENNOSIDES-DOCUSATE SODIUM 1 EACH TAB PO PRN (19:38)
[2024-01-16] MEDS: hydrOXYzine pamoate 25 MG CAP PO PRN (23:49)
[2024-01-17 04:17] LABS: HCT 34.4 % (34.0-46.0); MCH 32.6 pg (25.0-35.0); MCHC 34.8 g/dL (31.0-37.0); MCV 93.7 fL (80.0-100.0); Mean Platelet Volume 6.9; Platelet Count 194 k/uL (150-450); RBC 3.68 m/uL (3.80-5.40); RDW 14.2 % (11.5-15.5); WBC 8.9 k/uL (3.8-10.6)
[2024-01-17 04:52] LABS: African American GFR (CKD) 81 (>60 ml/min/1.73 sqM); Anion Gap 2 mmol/L; Blood Urea Nitrogen 26 mg/dL (7-17); Calcium 8.2 mg/dL (8.4-10.2); Carbon Dioxide 27 mmol/L (22-30); Chloride 104 mmol/L (98-107); Glucose 112 mg/dL (74-99); Non-African American GFR(CKD) 71 (>60 ml/min/1.73 sqM); Potassium 3.6 mmol/L (3.5-5.1); Sodium 133 mmol/L (137-145)
[2024-01-17 06:32] LABS: Glucose,Whole Blood 116 mg/dL (70-110)
[2024-01-17 11:32] LABS: Glucose,Whole Blood 206 mg/dL (70-110)
--- NOTE | 2024-01-17 12:12 | P.PN ---
Subjective Progress Note Date: 01/17/24 Principal diagnosis: Displaced right distal spiral humeral shaft fracture; radial nerve palsy Patient was seen at bedside this morning on 4 S. lying in the semirecumbent position with sling present to right upper extremity and dressing present over right shoulder and elbow. Patient states she has gotten up several times since surgery and has been walking around the room. She says she is having a lot of pain to the right elbow and upper arm at this time. She says the right forearm and the backside of her right hand is numb, but does notice improvement in the numbness since yesterday. Patient denies any other issues at this time. Objective - Vital Signs Vital signs: Vital Signs Temp 97.9 F 01/17/24 06:50 Pulse 67 01/17/24 06:50 Resp 17 01/17/24 06:50 BP 138/77 01/17/24 06:50 Pulse Ox 96 01/17/24 06:50 FiO2 Intake & Output 01/16/24 01/17/24 01/17/24 18:59 06:59 18:59 Output Total 800 Balance -800 Output: Urine 800 Other: Voiding Method External Catheter External Catheter Bedside Commode # Voids 4 - Exam Sling present to right upper extremity. Dressings clean dry and intact over the right shoulder and elbow. She is nontender about the right anterior shoulder. She is tender about the right mid humerus and elbow. She is nontender over the right wrist. She does have significant right wrist extensor and finger extensor weakness along with decreased sensation over the dorsal radial aspect of the right hand. Patient does have full passive range of motion of the right wrist in flexion/extension and right elbow in flexion extension. Patient unable to actively flex and extend right wrist 2+ distal radial pulses noted. Negative Homans bilaterally. - Labs CBC & Chem 7: 01/17/24 03:51 01/17/24 03:51 Labs: Abnormal Lab Results - Last 24 Hours (Table) 01/16/24 01/16/24 01/17/24 Range/Units 16:21 19:26 03:51 RBC 3.68 L (3.80-5.40) m/uL Sodium (137-145) mmol/L BUN (7-17) mg/dL Glucose (74-99) mg/dL POC Glucose (mg/dL) 141 H 148 H (70-110) mg/dL Calcium (8.4-10.2) mg/dL 01/17/24 01/17/24 01/17/24 Range/Units 03:51 06:31 11:30 RBC (3.80-5.40) m/uL Sodium 133 L (137-145) mmol/L BUN 26 H (7-17) mg/dL Glucose 112 H (74-99) mg/dL POC Glucose (mg/dL) 116 H 206 H (70-110) mg/dL Calcium 8.2 L (8.4-10.2) mg/dL Assessment and Plan Assessment: 1. right distal spiral humeral shaft fracture; radial nerve palsy -Postop day 2 status post Intramedullary nailing right humeral shaft fracture Plan: 1. right distal spiral humeral shaft fracture; radial nerve palsy -surgery performed Wednesday, 4right humeral IM nail. Patient stable at bedside this morning with sling to right upper extremity and dressing present over right shoulder and elbow. Patient does have radial nerve palsy. Prescription for radial nerve palsy splint placed in chart. Case management working on this. Pain medication as needed. Patient is encouraged to perform gentle range of motion exercises of the right elbow and right wrist/hand while resting in bed. Rolled up towel was placed under right hand to keep wrist hand and fingers in extension. Apply ice as needed to the shoulder and elbow. Case management working on rehab placement. We will continue to follow patient during stay in hospital. 2. Pain appreciate medical management 3. Pain management -Percocet 5 mg / 325 mg 4. DVT prophylaxis aspirin- 325 mg daily 5. GI prophylaxis -senna; Protonix 6. PT/OT -nonweightbearing right upper extremity; maintain sling to right upper extremity; weightbearing as tolerated bilateral lower extremities and left upper extremity. Patient is encouraged to perform gentle range of motion exercises of the right elbow and right wrist/hand while resting in bed. 7. Encourage incentive spirometer use Time with Patient: Less than 30
--- NOTE | 2024-01-17 14:55 | P.PN ---
Subjective Progress Note Date: 01/17/24 Patient is a 68-year-old female who presented to the ED after a mechanical fall. She mentions that she had to use an assist device (which she borrowed from a friend) to use as support while getting up from the toilet because of chronic pain in her back and abdomen. She has been using this device since a week but today while using the restroom, the device tipped over which is when she hit her right arm at the counter beside her. Her pain was on a 10 out of 10 severity. Currently she mentions that she is not able to move her right hand although she was able to move it before. Denies hitting her head but she is complaining of some lightheadedness right now although she states that it was not the reason for the fall. She also mentions about a rib fracture from coughing a few months ago. She also reports back pain as well as abdominal pain extremely tender to palpation which keeps on migrating. She states that she lives alone. Currently denies headache, fever, chills, chest pain, shortness of breath, coughing abdominal pain, nausea, vomiting. ED workup included humerus x-ray that shows oblique fracture at middle one third of the right humeral diaphysis with displacement of nearly 2 cm and soft tissue swelling. In the ED her right arm was put in a splint and Dilaudid given for pain. Vitals: T, 98 Fahrenheit, pulse 61 bpm, RR 18, BP 222/93, 99% on room air Labs: WBC 11.2, sodium 134 glucose 216 Coagulation panel: PT 12.7, INR 1.2 Progress note 01/17/2024 patient seen and examined at bedside. Patient has ongoing pain to the right upper extremity, moderately controlled with medication regimen. She also has some stated mild generalized abdominal pain. Review of systems: Pertinent positives and negatives as discussed in HPI, a complete review of s ystems was performed and all other systems are negative. Physical examination: Vital signs reviewed General: non toxic, no distress, appears at stated age, obese Derm: no unusual rashes/lesions, warm Head: atraumatic, normocephalic, symmetric Eyes: EOMI, anicteric sclera ENT: Nose and ears atraumatic Mouth: no lip lesion, mucus membranes moist Cardiovascular: S1S2 reg, no murmur, no edema, mild 1/6 aortic stenosis Lungs: CTA bilateral, no rhonchi, no rales, no accessory muscle use Abdominal: soft, nontender to palpation, no guarding Ext: RUE in a splint, RUE wrist drop with flexion 4/5 and extension 1/5, muscle strength 4 out of 5 in all LUE, LLE, RLE extremities grossly, no gross muscle a trophy, no contractures, Neuro: CN II-XI grossly intact, no gross focal neuro deficits Psych: Alert, oriented, appropriate affect Labs reviewed todayWBC 8.9, hemoglobin 12.0, platelets 194, sodium 133, potassium 3.6, bicarb 27, BUN 26, creatinine 0.84, glucose 112 Imaging reviewed today none Assessment/Plan: Patient is a 68-year-old female who presented to the ED after a mechanical fall and admission accepted for right humerus fracture. #. Right humeral diaphysis fracture #. Preoperative Evaluation # Status post intramedullary nailing of the right humeral shaft fracture - Humerus x-ray shows oblique fracture at middle one third of the right humeral diaphysis and displacement of nearly 2 cm - Patient's arm is put in a splint C/W Dilaudid 1 mg IVP Q3HR as needed Orthopedic surgery following, will proceed with surgery tomorrow Echocardiogram with LVEF 55%. proBNP 189 NSQIP risk of MACE (Major Adverse Cardiac Event) at 1% Procedure tolerated well with no complications #Perioperative FELIPE, resolved BUN 35.5, initial creatinine 0.76 => 1.5 -> 1.2 => 0.84 Unremarkable Renal ultrasound unremarkable Urine nitrate negative Continue IV NS at 20 cc/h #. Hypertensive urgency BP on admission 222/93, currently 143/69 S/p hydralazine 25 mg p.o. once stat in the ED , carvedilol 6.25 mg p.o. daily Clonidine 0.2 mg p.o. every 8 hours as needed for SBP >180 Continue monitor #. Leukocytosis, likely reactive, no signs of active infection at this time, resolved Elevated WBC 11.2 => 8.4, Monitor CBC #. Mild hyponatremia, resolved Low sodium 134 => 139 => 137 Monitor BMP #. Hyperglycemia Elevated glucose 216 Insulin sliding scale and glucose monitoring ACHS - HbA1c 6.4% #. Nausea and vomiting C/W ondansetron 4 mg IV every 8 hours as needed #. Hypothyroidism C/W home med levothyroxine 112 mcg p.o. daily #. History of GERD C/W home med esomeprazole 3 mg p.o. daily F: 0.9 normal saline at 20 mL/h E: Replete as required N: Heart healthy diet A: Ambulatory DVT prophylaxis: SCD The patient is admitted with an anticipated less than 2 midnight stay for evaluation of right humerus fracture CODE STATUS: Full code Discussed with: Patient Anticipated discharge place: Home I saw and evaluated the patient during the farmer and critical portions of this encounter, and discussed the case in detail with the resident author of this note, I agree with the Assessment and Plan, and my changes, if any, are highlighted in blue. Objective - Vital Signs Vital signs: Vital Signs Temp 97.9 F 01/17/24 06:50 Pulse 67 01/17/24 06:50 Resp 17 01/17/24 06:50 BP 138/77 01/17/24 06:50 Pulse Ox 96 01/17/24 06:50 FiO2 Intake & Output 01/16/24 01/17/24 01/17/24 18:59 06:59 18:59 Output Total 800 Balance -800 Output: Urine 800 Other: Voiding Method External Catheter External Catheter Bedside Commode # Voids 4 - Labs CBC & Chem 7: 01/17/24 03:51 01/17/24 03:51 Labs: Abnormal Lab Results - Last 24 Hours (Table) 01/16/24 01/16/24 01/17/24 Range/Units 16:21 19:26 03:51 RBC 3.68 L (3.80-5.40) m/uL Sodium (137-145) mmol/L BUN (7-17) mg/dL Glucose (74-99) mg/dL POC Glucose (mg/dL) 141 H 148 H (70-110) mg/dL Calcium (8.4-10.2) mg/dL 01/17/24 01/17/24 01/17/24 Range/Units 03:51 06:31 11:30 RBC (3.80-5.40) m/uL Sodium 133 L (137-145) mmol/L BUN 26 H (7-17) mg/dL Glucose 112 H (74-99) mg/dL POC Glucose (mg/dL) 116 H 206 H (70-110) mg/dL Calcium 8.2 L (8.4-10.2) mg/dL
[2024-01-17 16:48] LABS: Glucose,Whole Blood 138 mg/dL (70-110)
[2024-01-17 20:11] LABS: Glucose,Whole Blood 158 mg/dL (70-110)
[2024-01-18 07:29] VITALS: BP 124/75; PULSE 68; RESP 16; TEMP 97.9
[2024-01-18 08:22] LABS: HGB 10.7 g/dL (12.0-17.0); MCH 32.5 pg (27.0-32.0); MCHC 34.5 g/dL (32.0-37.0); MCV 94.2 FL (80.0-97.0); Mean Platelet Volume 10.4 FL (9.5-12.2); NRBC Per 100 WBC 0 X 10*3/uL (0.00-0.01); Platelet Count 208 X 10*3/uL (140-440); RBC 3.29 X 10*6/uL (4.10-5.60); RDW 14.6 % (11.5-14.5); WBC 5.73 X 10*3/uL (4.50-10.00)
[2024-01-18 09:25] LABS: Blood Urea Nitrogen 18.3 mg/dL (9.0-27.0); Calcium 8.2 mg/dL (8.7-10.3); Carbon Dioxide 26.4 mmol/L (21.6-31.8); Chloride 101 mmol/L (96-109); Glucose 124 mg/dL (70-110); Potassium 3.8 mmol/L (3.5-5.5); Sodium 135 mmol/L (135-145)
--- NOTE | 2024-01-18 10:21 | P.PN ---
Subjective Progress Note Date: 01/18/24 Principal diagnosis: Displaced right distal spiral humeral shaft fracture; radial nerve palsy Patient was seen at bedside this morning on 4 S. lying in the semirecumbent position with sling present to right upper extremity and dressing present over right shoulder and elbow. Patient states she has gotten up several times since surgery and has been walking around the room. She says she is having a lot of pain to the right elbow and upper arm at this time. She says the right forearm and the backside of her right hand is numb, but does notice improvement in the numbness since yesterday. Patient denies any other issues at this time. Objective - Vital Signs Vital signs: Vital Signs Temp 97.9 F 01/18/24 06:49 Pulse 68 01/18/24 06:49 Resp 16 01/18/24 06:49 BP 124/75 01/18/24 06:49 Pulse Ox 95 01/18/24 06:49 FiO2 Intake & Output 01/17/24 01/18/24 01/18/24 18:59 06:59 18:59 Other: Voiding Method Bedside Commode Bedside Commode # Voids 2 - Exam Sling present to right upper extremity. Dressings clean dry and intact over the right shoulder and elbow. She is nontender about the right anterior shoulder. She is tender about the right mid humerus and elbow. She is nontender over the right wrist. She does have significant right wrist extensor and finger extensor weakness along with decreased sensation over the dorsal radial aspect of the right hand. Patient does have full passive range of motion of the right wrist in flexion/extension and right elbow in flexion extension. Patient unable to actively flex and extend right wrist 2+ distal radial pulses noted. Negative Homans bilaterally. - Labs CBC & Chem 7: 01/18/24 03:33 01/18/24 03:33 Labs: Abnormal Lab Results - Last 24 Hours (Table) 01/17/24 01/17/24 01/17/24 Range/Units 11:30 16:46 20:06 RBC (4.10-5.60) X 10*6/uL Hgb (12.0-17.0) g/dL Hct (37.2-50.0) % MCH (27.0-32.0) pg RDW (11.5-14.5) % Glucose (70-110) mg/dL POC Glucose (mg/dL) 206 H 138 H 158 H (70-110) mg/dL Calcium (8.7-10.3) mg/dL 01/18/24 01/18/24 Range/Units 03:33 03:33 RBC 3.29 L (4.10-5.60) X 10*6/uL Hgb 10.7 L (12.0-17.0) g/dL Hct 31.0 L (37.2-50.0) % MCH 32.5 H (27.0-32.0) pg RDW 14.6 H (11.5-14.5) % Glucose 124 H (70-110) mg/dL POC Glucose (mg/dL) (70-110) mg/dL Calcium 8.2 L (8.7-10.3) mg/dL Assessment and Plan Assessment: 1. right distal spiral humeral shaft fracture; radial nerve palsy -Postop day 3 status post Intramedullary nailing right humeral shaft fracture Plan: 1. right distal spiral humeral shaft fracture; radial nerve palsy -surgery performed Wednesday, 4right humeral IM nail. Patient stable at bedside this morning with sling to right upper extremity and dressing present over right shoulder and elbow. Patient does have radial nerve palsy. Prescription for cockup wrist splint placed in chart. Case management working on this. Pain medication as needed. Patient is encouraged to perform gentle range of motion exercises of the right elbow and right wrist/hand while resting in bed. Rolled up towel was placed under right hand to keep wrist and fingers in extension. Apply ice as needed to the shoulder and elbow. Case management working on rehab placement. Patient stable for an orthopedic standpoint for discharge from the hospital. 2. Pain appreciate medical management 3. Pain management -Percocet 5 mg / 325 mg 4. DVT prophylaxis aspirin- 325 mg daily 5. GI prophylaxis -senna; Protonix 6. PT/OT -nonweightbearing right upper extremity; maintain sling to right upper extremity; weightbearing as tolerated bilateral lower extremities and left upper extremity. Patient is encouraged to perform gentle range of motion exercises of the right elbow and right wrist/hand while resting in bed. 7. Encourage incentive spirometer use Time with Patient: Less than 30
[2024-01-18 11:41] LABS: Glucose,Whole Blood 168 mg/dL (70-110)
--- NOTE | 2024-01-18 14:03 | P.DS ---
Providers Date of admission: 01/13/24 21:05 Expected date of discharge: 01/18/24 Attending physician: Renny Orosco MD Consults: 01/13/24 20:05 Consult Physician Routine Consulting Provider: Marcio Noyola Consult Reason/Comments: humerus fracture Do you want consulting provider notified?: Already Contacted Primary care physician: Physician Nonstaff Hospital Course: Discharge diagnoses; #. Right humeral diaphysis fracture #. Preoperative Evaluation # Status post intramedullary nailing of the right humeral shaft fracture #Perioperative FELIPE #. Hypertensive urgency #. Leukocytosis, reactive #. Mild hyponatremia #. Hyperglycemia #. Nausea and vomiting #. Hypothyroidism #. History of GERD Hospital course; Patient is a 68-year-old female who presented to the ED after a mechanical fall. She mentions that she had to use an assist device (which she borrowed from a friend) to use as support while getting up from the toilet because of chronic pain in her back and abdomen. She has been using this device since a week but today while using the restroom, the device tipped over which is when she hit her right arm at the counter beside her. Her pain was on a 10 out of 10 severity. Currently she mentions that she is not able to move her right hand although she was able to move it before. Denies hitting her head but she is complaining of some lightheadedness right now although she states that it was not the reason for the fall. She also mentions about a rib fracture from coughing a few months ago. She also reports back pain as well as abdominal pain extremely tender to palpation which keeps on migrating. She states that she lives alone. Currently denies headache, fever, chills, chest pain, shortness of breath, coughing abdomi nal pain, nausea, vomiting. ED workup included humerus x-ray that shows oblique fracture at middle one third of the right humeral diaphysis with displacement of nearly 2 cm and soft tissue swelling. In the ED her right arm was put in a splint and Dilaudid given for pain. Vitals: T, 98 Fahrenheit, pulse 61 bpm, RR 18, BP 222/93, 99% on room air Labs: WBC 11.2, sodium 134 glucose 216 Coagulation panel: PT 12.7, INR 1.2 During hospital stay patient was treated for right humeral shaft fracture with intramedullary nailing. She tolerated the surgery well. She continued with pain management while inpatient. Also during her stay she had elevated blood pressure which was monitored. She also had leukocytosis which resolved and was likely reactive. Patient is discharged in stable condition to rehab facility. She will be discharged with aspirin 325 daily, senna 8.6-50 mg daily, Percocet 7.5-325 mg every 6 hour as needed. Her hydrochlorothiazide has been discontinued. She is to follow-up outpatient with Dr. Morillo and her PCP. Vitals reviewed Physical examination: Vital signs reviewed General: non toxic, no distress, appears at stated age, obese Derm: no unusual rashes/lesions, warm Head: atraumatic, normocephalic, symmetric Eyes: EOMI, anicteric sclera ENT: Nose and ears atraumatic Mouth: no lip lesion, mucus membranes moist Cardiovascular: S1S2 reg, no murmur, no edema, mild 1/6 aortic stenosis Lungs: CTA bilateral, no rhonchi, no rales, no accessory muscle use Abdominal: soft, nontender to palpation, no guarding Ext: RUE in a splint, RUE wrist drop with flexion 4/5 and extension 1/5, muscle strength 4 out of 5 in all LUE, LLE, RLE extremities grossly, no gross muscle atrophy, no contractures, Neuro: CN II-XI grossly intact, no gross focal neuro deficits Psych: Alert, oriented, appropriate affect Dictation was produced using [employer] dictation software. please excuse any grammatical, word or spelling errors. I saw and evaluated the patient during the farmer and critical portions of this encounter, and discussed the case in detail with the resident author of this note, I agree with the Assessment and Plan, and my changes, if any, are highlighted in blue. Plan - Discharge Summary Discharge Rx Participant: No New Discharge Prescriptions: New Aspirin 325 mg PO DAILY #28 tab Sennosides/Docusate Sodium [Senna Plus 8.6-50 mg Softgel] 1 each PO DAILY #20 capsule oxyCODONE HCL/ACETAMINOPHEN [Percocet 7.5-325 mg] 1 tab PO Q6HR PRN #12 tab PRN Reason: Pain Continue Levothyroxine Sodium [Euthyrox] 112 mcg PO DAILY carvediloL [Coreg] 6.25 mg PO DAILY predniSONE [Deltasone] 40 mg PO DAILY Ibuprofen [Motrin] 600 mg PO TID PRN PRN Reason: Pain Esomeprazole Magnesium [NexIUM] 20 mg PO DAILY Discontinued HYDROcodone/APAP 5-325MG [[place] 5-325] 1 tab PO BID PRN PRN Reason: Pain hydroCHLOROthiazide 12.5 mg PO DAILY Discharge Medication List Levothyroxine Sodium [Euthyrox] 112 mcg PO DAILY 03/19/22 [History] Esomeprazole Magnesium [NexIUM] 20 mg PO DAILY 01/13/24 [History] Ibuprofen [Motrin] 600 mg PO TID PRN 01/13/24 [History] carvediloL [Coreg] 6.25 mg PO DAILY 01/13/24 [History] predniSONE [Deltasone] 40 mg PO DAILY 01/13/24 [History] Aspirin 325 mg PO DAILY #28 tab 01/18/24 [Rx] Sennosides/Docusate Sodium [Senna Plus 8.6-50 mg Softgel] 1 each PO DAILY #20 capsule 01/18/24 [Rx] oxyCODONE HCL/ACETAMINOPHEN [Percocet 7.5-325 mg] 1 tab PO Q6HR PRN #12 tab 01/18/24 [Rx] Follow up Appointment(s)/Referral(s): Nonstaff,Physician [Primary Care Provider] - 1-2 days Marcio Noyola MD [STAFF PHYSICIAN] - 01/31/24 2:20 pm Activity/Diet/Wound Care/Special Instructions: Orthopedic Discharge Instructions: 1. Wound care and infection precautions, keep incision dry and covered while showering, no lotions, creams, moisturizers. No soaking, pools, hot tubs. Do not scrub over incision. 2. Nonweightbearing right upper extremity until follow-up. 3. Ice when necessary. Do not exceed 20 minutes per hour with ice pack. 4. Utilize sling to right upper extremity until seen at first follow up appointment. 5. Pain meds and anticoagulants per prescription. 6. Pain medication has potential to cause constipation. Increase oral fluid and fiber intake. Contact primary care provider if you have not had a bowel movement within 48 hours after discharge. 7. No anti-inflammatory medication until discussed at first post operative visit, this including Motrin, Aleve, Mobic, Diclofenac. 8. Follow up in office at 2 weeks postop with Hemal Carranza PA-C / Juventino Stanley PA-C 9. Follow up with your primary care doctor 7-10 days after discharge. 10. Contact [facility] with any questions, . aspirin as tolerated keep incision dry and covered while showering 11. Heart Healthy Diet Keep incision clean, dry, intact. While showering, cover dressing with Saran wrap. Keep Steri-Strips on until follow-up appointment in office in 2 weeks. Perform gentle ROM exercises of right elbow and right wrist Discharge Disposition: TRANSFER TO SNF/ECF
== END 2024-01-18 14:43 | DRG 493 ==
LOC: EC 17:45 → 4SSUR 21:05
PROVIDERS: ADMIT Internal Medicine; ATTEND Internal Medicine
PROC: 0LQ10ZZ Repair Right Shoulder Tendon, Open Approach (ICD-10-PCS; 2024-01-15)
PROC: 0PSF06Z Reposition Right Humeral Shaft with Intramedullary Internal Fixation Device, Open Approach (ICD-10-PCS; principal; 2024-01-15 08:00)
DX: S42.341A Displaced spiral fracture of shaft of humerus, right arm, initial encounter for closed fracture (principal); E87.1 Hypo-osmolality and hyponatremia; N17.9 Acute kidney failure, unspecified; I16.0 Hypertensive urgency; E66.01 Morbid (severe) obesity due to excess calories; I10 Essential (primary) hypertension; E89.0 Postprocedural hypothyroidism; Z68.36 Body mass index [BMI] 36.0-36.9, adult; G56.30 Lesion of radial nerve, unspecified upper limb; D72.828 Other elevated white blood cell count; G89.29 Other chronic pain; M54.9 Dorsalgia, unspecified; M21.331 Wrist drop, right wrist; K21.9 Gastro-esophageal reflux disease without esophagitis; R10.9 Unspecified abdominal pain; R53.81 Other malaise; R73.9 Hyperglycemia, unspecified; W18.30XA Fall on same level, unspecified, initial encounter; Y92.002 Bathroom of unspecified non-institutional (private) residence as the place of occurrence of the external cause; Z74.2 Need for assistance at home and no other household member able to render care; Z79.890 Hormone replacement therapy; Z79.899 Other long term (current) drug therapy; Z85.850 Personal history of malignant neoplasm of thyroid; Z85.830 Personal history of malignant neoplasm of bone; Z85.3 Personal history of malignant neoplasm of breast; Z98.1 Arthrodesis status
CPT/HCPCS: 36415; 76770; 80048; 81003; 82570; 83036; 83880; 85025; 85027; 85610; 85730; 93005; 93306; 96374; 96376; 99285